=== PATIENT | female | born 1950 | race Caucasian/White ===

== ENCOUNTER 2023-10-19 08:30 | Emergency (ER) | payer MEDICARE, SELFPAY ==
--- NOTE | 2023-10-19 08:45 | ED.GENADULT ---
HPI - General Adult General Chief complaint: Ear Stated complaint: Rt Ear Irritation Time Seen by Provider: 10/19/23 08:45 73-year-old female patient presents to the [facility] with complaints of right ear pain that started about 330 this morning. Patient states it did wake her up from her sleep. Patient states she has had a little bit of a clear runny nose denies fevers, body aches or chills. Denies any coughing, chest pain or shortness of breath. Patient states she does take a Claritin daily but is getting rate to switch to Zyrtec. Source: patient Mode of arrival: ambulatory Limitations: no limitations Related Data Home Medications Medication Instructions Recorded Confirmed albuterol sulfate 90 mcg/actuation inhalation 10/19/23 aerosol inhaler aspirin 81 mg chewable tablet 81 mg PO DAILY 10/19/23 10/19/23 fluoxetine 40 mg capsule mg 10/19/23 folic acid 400 mcg tablet 0.4 mg PO DAILY 10/19/23 10/19/23 gabapentin 400 mg capsule mg 10/19/23 gabapentin 600 mg tablet mg 10/19/23 golimumab 12.5 mg/mL intravenous 200 mg IV ONCE 10/19/23 10/19/23 solution (Simponi ARIA) levothyroxine 150 mcg tablet mcg 10/19/23 lisinopril 20 mg tablet mg 10/19/23 loratadine 10 mg tablet (Claritin) 10 mg PO DAILY 10/19/23 10/19/23 methotrexate sodium 2.5 mg tablet mg 10/19/23 omeprazole 20 mg capsule,delayed mg 10/19/23 release propranolol 20 mg tablet mg 10/19/23 Allergies Allergy/AdvReac Type Severity Reaction Status Date / Time morphine Allergy Headache Verified 10/19/23 08:52 nabumetone [From Relafen] Allergy Rash Verified 10/19/23 08:52 Review of Systems Review of Systems: CONSTITUTIONAL: Denies fever, chills, or sweats. EYES: Denies visual changes, redness, or discharge. ENT: Denies rhinorrhea, congestion, sore throat, Positive right otalgia. CARDIOVASCULAR: Denies chest pain, palpitations, or edema. RESPIRATORY: Denies cough or dyspnea. GASTROINTESTINAL: Denies abdominal pain, nausea, vomiting, or diarrhea. GENITOURINARY: Denies dysuria or hematuria. SKIN: Denies rash or itching. MUSCULOSKELETAL: Denies back pain, joint pain, or myalgia. NEUROLOGIC: Denies headache, numbness, or weakness. PSYCHIATRIC: Denies anxiety or depression. PMFSH Comments At the time of my signature I agree with nursing past medical history, surgical, social, and family history. There is no relevant family history pertinent to the presenting complaint. Exam Narrative: GENERAL: Well-appearing, well-nourished, and in no acute distress. HEAD: Normocephalic, atraumatic. EYES: PERRLA and EOMI. ENT: Nares clear, no rhinorrhea or epistaxis. Mucous membranes moist. posterior pharynx with no erythema, tonsillar enlargement, exudates or lesions present. Bilateral TMs are clear but the right TM does appear to have some injection with surrounding erythema. NECK: Supple. No lymphadenopathy CHEST: Clear to auscultation. No respiratory distress. HEART: Regular rate and rhythm. No murmur heard. Normal peripheral pulses. ABDOMEN: Soft, nontender, nondistended, normal active bowel sounds. EXTREMITIES: Normal range of motion. No edema. SKIN: Warm, dry, no rash. NEURO: No focal deficits. Alert and oriented x3. Course Course Level of Care: Express Care Visit Vital Signs Vital signs: Vital Signs Temperature 36.4 C 10/19/23 08:50 Pulse Rate 68 10/19/23 08:50 Respiratory Rate 18 10/19/23 08:50 Blood Pressure 126/75 10/19/23 08:50 Pulse Oximetry 98 10/19/23 08:50 Oxygen Delivery Room Air 10/19/23 08:50 Temperature 36.4 C 10/19/23 08:55 Pulse Rate 68 10/19/23 08:55 Respiratory Rate 18 10/19/23 08:55 Blood Pressure 126/75 10/19/23 08:55 Pulse Oximetry 98 10/19/23 08:55 Oxygen Delivery Room Air 10/19/23 08:55 Vital signs reviewed. Medical Decision Making MDM Narrative Medical decision making narrative: Plan care patient is discharged home with antibiotic for ear infection. Encour
[2023-10-19 08:50] VITALS: BP 126/75; PULSE 68; RESP 18; TEMP 36.4; O2SAT 98
[2023-10-19 08:55] VITALS: BP 126/75; PULSE 68; RESP 18; TEMP 36.4; O2SAT 98
== END 2023-10-19 09:20 | disposition home or self-care (01) ==
PROVIDERS: Emergency Provider Nurse Practitioner Family
DX: H65.111 Acute and subacute allergic otitis media (mucoid) (sanguinous) (serous), right ear (principal); Z79.82 Long term (current) use of aspirin; I10 Essential (primary) hypertension; K21.9 Gastro-esophageal reflux disease without esophagitis; M06.9 Rheumatoid arthritis, unspecified; M85.80 Other specified disorders of bone density and structure, unspecified site; E03.9 Hypothyroidism, unspecified; F41.9 Anxiety disorder, unspecified; F32.A Depression, unspecified; Z87.891 Personal history of nicotine dependence
CPT/HCPCS: 99203; G0463

== ENCOUNTER 2025-02-01 10:58 | Emergency (ER) | payer MEDICARE, SELFPAY ==
--- NOTE | ~2025-02-01 | CT_ITS ---
EXAMINATION: CT brain wo con DATE: 02/01/2025 11:40 INDICATION: Fall with head injury TECHNIQUE: Computed tomography (CT) of the head was performed without intravenous contrast. Sagittal and coronal reconstructions were performed. The mA was adjusted according to patient size. Iterative reconstruction technique was employed. The dose-length product was 605.33 mGy-cm. COMPARISON: None FINDINGS: Left parietal scalp hematoma. No fracture. No acute intracranial hemorrhage, acute infarction or abno rmal extra axial fluid collection.. There is mild scattered white matter hypoattenuation consistent w ith chronic small vessel ischemic disease. Symmetric prominence of the sulci consistent with mild age -appropriate diffuse cerebral volume loss. Ventricles are normal and symmetric. No mass/mass effect. Changes of bilateral intraocular lens replacement. Mucosal thickening in the bilateral ethmoid and ma xillary sinuses. Mastoid air cells and middle ear cavities are clear.. IMPRESSION: 1. Left parietal scalp hematoma. No fracture or acute intracranial process. 2. Age-related changes including mild diffuse volume loss and mild scattered white matter hypoattenua tion consistent with chronic small vessel ischemic disease. Reviewed, dictated and finalized at location B. IMPRESSION: 1. Left parietal scalp hematoma. No fracture or acute intracranial process. 2. Age-related changes including mild diffuse volume loss and mild scattered wh ite matter hypoattenuation consistent with chronic small vessel ischemic diseas e.
--- NOTE | ~2025-02-01 | CT_ITS ---
EXAMINATION: CT cervical spine wo con DATE: 02/01/2025 11:40 INDICATION: Fall with head injury TECHNIQUE: Computed tomography (CT) of the cervical spine was performed without intravenous contrast. Automated exposure control and iterative reconstruction technique were employed. The dose-length pro duct was 525.23 mGy-cm. COMPARISON: None FINDINGS: Straightening of the normal cervical lordosis. Vertebral body heights are normal. No fracture. Modera te disc height loss at C5-C6 and T2-T3 with mild disc height loss at C2-C3, C4-C5 and C6-C7 through T 1-T2. Small posterior endplate osteophytes contribute to mild central canal stenosis at C5-C6. There is severe facet osteoarthritis on the left at C5-C6 there is mild osteoarthritis at many of the remai suzy cervical facet joints. Moderate facet osteoarthritis on the left at C7-T1 with mild facet osteoa rthritis throughout the remainder of the cervical spine. There is mild neural foraminal stenosis on t he left at C5-C6. Cervical soft tissues are unremarkable. Left internal jugular central venous cathet er extends into the superior vena cava and beyond the inferior margin of the field of imaging. IMPRESSION: 1. Moderate cervical spondylosis. No acute osseous abnormality. Reviewed, dictated and finalized at location B.
--- OUTSIDE RECORDS SUMMARY | 2025-02-01 11:10 | XMS_ITS | Data Portability ---
Author Organization [facility], [address] ([place]) Address [address] 4th [place] [address] Care Team Providers Care Assembly Lead Person Name Role Phone CORTEZ FOSTER Primary Care Provider CORTEZ FOSTER Referring Provider Assessment Encounter Date Assessment Date Assessment LastModified by Organization Details LastModified Time 06/17/2024 06/17/2024 HPI: Aileen is here for follow-up of lung cancer screening and MADAN. She called a few days ago with complaints of chest congestion and worsening cough. Bordetella IgG antibodies were elevated and she was negative for COVID and influenza. She completed Z-Jordan as prescribed and reported some improvement in his symptoms. Exercise tolerance is stable. She is trying to use CPAP most of the time. PMH and PSH: COPD, obesity, MADAN, depression, HTN, hypothyroidism, RA, paroxysmal SVT, appendectomy, , cholecystectomy , EGD, GERD, hysterectomy, hemilaminectomy , tonsillectomy, vaginal sling surgery and revision of the sling. Family history: Esophageal cancer, CVA, HTN and lung cancer. Social history: 40 to 50 pack years, quit in 2019. PHYSICAL EXAM: Awake, alert, oriented, not in acute distress. Normal mood and affect. Pleasant. OP Mallampati 3. Normal work of breathing. Symmetrical chest expansion. CTAB. RRR, no MRG. Undisplaced PMI. No JVD. No LE edema. DIAGNOSTIC DATA: Spirometry previously did not show obstruction. 6-minute walk test today is unremarkable. PSG 02/14/2023, weight 235 pounds: AHI 10/h and supine AHI 38/h. CPAP download today shows reasonable adherence to therapy. Low-dose CT on 06/14/2024 was unremarkable. No worrisome pulmonary nodules or lesions. ASSESSMENT & PLAN: Aileen has 40+ pack years quit in 2019, BMI >40, GERD. She has recurrent cough. Her most recent cough could be from Bordetella infection. She completed azithromycin with partial improvement. Other potential causes include reflux and lisinopril. Instructed on reflux prevention measures. Advised to call if her cough does not resolve. Continue regular use of CPAP 12-16 CWP. Recommended regular exercise and weight loss. RTC in 1 year with CPAP download, ESS & low-dose CT for lung cancer screening. yoanna Not available 06/17/2024 16:18:55 07/26/2024 07/26/2024 74-year-old female here for evaluation of near syncope. She hypertension. About 2 weeks ago she had parotitis and she had an episode of near syncope while in the bed lasted few seconds. Did not quite pass out completely. Another episode a week later and was in the ER blood work was normal. Blood pressure has been normal. Denies chest pain dizziness orthopnea. Has rare palpitations. No previous cardiac x-ray. He also been diagnosed with chest wall mass possible malignancy waiting on biopsy for this. EKG shows sinus rhythm. Assessment and plan 74-year-old female evaluation of near syncope. I doubt cardiac etiology. Suspect vasovagal. We will do a 1 month event monitor to rule out any cardiac arrhythmias. Pending this reassured from cardiac respective. timothy Not available 07/26/2024 15:30:20 09/10/2024 09/10/2024 IMPRESSION: 1. Non-Hodgkin s lymphoma, stage 4 being managed through [facility]. 2. Seropositive rheumatoid arthritis, stable. 3. Methotrexate therapy. PLAN: 1. The patient s labs are reviewed. They are stable, normal. She continues to have namely a chronic disease. 2. Continue methotrexate 10 mg once weekly. Advised her I would not raise the dose at this time. She is comfortable with that. Her arthritis is doing well. 3. Return for follow-up in 4 months to re-evaluate her status. She is encouraged to call any time prior to that as needed. [email or web address] Not available 09/10/2024 12:45:42 Plan of Treatment Reminders Order Date Submit Date Provider Last Modified By Organization Details Last Modified Time Details Appointments Establ april Lindsay t 15.EST 2024 09:00A M Hermelindo Robledo Not available Not available Not available Catara ct Evalua tion 10.NEW 2024 10:30A M Dr. Anshlu Santoro Not available Not available Not available New Patien t Visit 10.NEW 2024 02:30P M Dr. Mark Slaughter Not available Not available Not available [place] w Exerci se Oximet ry.PRO 2024 02:30P M [facility] Not available Not available Not available Estabcory Lindsay t 10.EST 2024 03:00P M Dr. Morro Sweet Not available Not available Not available Estabcory Lindsay t 20.EST 2024 10:40A M Dr. Hermelindo Calvin Not available Not available Not available Lab CBC 2024 025 [facility] Only - [facility], [address] [place] [address], [id number], 01/26/2025 19:26:20 ALT (daphne oleary), serum or plasma 2024 025 [facility] Only - [facility], [address] [place] [address], [id number], 01/26/2025 13:00:56 creati nine, serum or plasma 2024 025 [facility] Only - [facility], [address] [place] [address], [id number], 01/26/2025 13:00:56 Referral None record ed. Procedures None record ed. Surgeries None record ed. Imaging None record ed. Medication Orders None record ed. Patient TargetsNo targets recorded. Patient InstructionsNo instructions recorded. Reason for Referral None Reported. Results Created Date Observation Date Name Description Value Unit Range Abnormal Flag Note LastModifiedBy Organization Detail LastModifiedTime 06/10/20 24 06/10/2024 influ may (A+B) RNA, quali tativ e, PCR influenza A and B Not Available [facility] [address], [id number], 06/10/2024 12:48:27 06/10/20 24 06/10/2024 influ may (A+B) RNA, quali tativ e, PCR influenza A NEGATI VE negati ve Not Available Md Only - [facility] [address] [place] [address], [id number], 06/10/2024 12:48:27 06/10/20 24 06/10/2024 influ may (A+B) RNA, quali tativ e, PCR influenza B NEGATI VE negati ve Influ may A/B assay perfo rmed on the ID NOW Instr ument via rapid molec ular in vitro diagn ostic appro ach utili zing an isoth ermal nucle ic acid ampli ficat ion techn ique for the quali tativ e detec tion and discr imina tion of influ may A and B. It is inten ded for use as an aid in the diffe renti al diagn osis of influ may A and B viral infec tions in human s in conju nctio n with clini yue and epide miolo gical risk facto rs. The assay is not inten ded to detec t the prese nce of influ may C virus . Rapid influ may diagn ostic testi ng (RIDT ) is not inten ded to be used as the sole deter minin g facto r for Influ may diagn osis. Negat holger resul ts do not precl ude infec tion with influ may virus and shoul d not be the sole basis of a patie nt treat ment decis ion. False negat holger resul ts may occur if a speci men is impro perly colle cted, trans porte d/chaves dled or inade quate level s of virus es are prese nt in the speci men. At a low frequ ency, clini yue sampl es can conta in inhib itors that may gener ate inval id resul ts. Site to site inval id rates may vary and repea t testi ng shoul d [facility]i [facility] . Not Available Md Only - [facility] [address] [place] [address], [id number], 06/10/2024 12:48:27 06/10/20 24 06/12/2024 SARS CoV 2 RNA (COVI D-19) , QL, silo man-P CR, respi rator y speci men sars-cov-2 RNA, RT PCR ql Not Available [facility] [address] [place] [address], [id number], 06/12/2024 15:38:49 06/10/20 24 06/12/2024 SARS CoV 2 RNA (COVI D-19) , QL, silo man-P CR, respi rator y speci men cov 2 RNA, PCR not detect Not Detec georgina This nucle ic acid ampli ficat ion test was devel oped and its perfo rmanc e lisa cteri stics deter mined by [facility] atori es. Nucle ic acid ampli ficat ion tests inclu de RT-PC R and TMA. This test has not been FDA clear ed or appro rodri. This test has been autho rized by FDA under an Emerg ency Use Autho rizat ion (EUA) . This test is only autho rized for the durat ion of time the decla ratio n that circu mstan rani exist justi fying the autho rizat ion of the emerg ency use of in vitro diagn ostic tests for detec tion of SARS- CoV-2 virus and/o r diagn osis of COVID -19 infec tion under secti on 564(b )(1) of the Act, 21 U.S.C . 360bb b-3(b ) (1), unles s the autho rizat ion is termi nated or revok ed soone r. When diagn ostic testi ng is negat holger, the possi bilit y of a false negat holger resul t shoul d be consi dered in the aamir xt of a patie nt's recen t expos ures and the prese nce of clini yue signs and sympt oms consi stent with COVID -19. An indiv idual witho ut sympt oms of COVID -19 and who is not charlotte ing SARS- CoV-2 virus would expec t to have a negat holger (not detec georgina) resul t in this assay . Not Available Md Only - [facility] [address] [place] [address], [id number], 06/12/2024 15:38:49 06/10/20 24 06/15/2024 borde tella pertu ssis igg+i ga Ab, serum bord pertussis IgG Not Available [facility] [address] [place] [address], [id number], 06/15/2024 03:38:27 06/10/20 24 06/15/2024 borde tella pertu ssis igg+i ga Ab, serum B pertussis IgG - PT 3.96 index 0.00-0 .94 high Negat holger <0.95 Equiv ocal 0.95 - 1.04 Posit holger >1.04 Not Available Md Only - [facility] [address] [place] [address], [id number], 06/15/2024 03:38:27 06/10/20 24 06/15/2024 borde tella pertu ssis igg+i ga Ab, serum B pertussis IgA - PT <1.0 index 0.0-0. 9 Negat holger <1.0 Borde rline 1.0 - 1.1 Posit holger >1.1 Not Available Md Only - [facility] [address] [place] [address], [id number], 06/15/2024 03:38:27 06/17/20 24 06/17/2024 CBC CBC Not Available Md Only - [facility] [address] [place] [address], [id number], 06/17/2024 19:01:08 06/17/20 24 06/17/2024 CBC WBC 7.6 K/uL 3.8-11 .2 Not Available Md Only - [facility] [address] [place] [address], [id number], 06/17/2024 19:01:08 06/17/20 24 06/17/2024 CBC RBC 3.28 M/uL 3.92-5 .10 low Not Available [facility] Only - [facility] [address] [place] [address], [id number], 06/17/2024 19:01:08 06/17/20 24 06/17/2024 CBC HGB 9.9 g/dL 11.8-1 5.3 low Not Available [facility] Only - [facility] [address] [place] [address], [id number], 06/17/2024 19:01:08 06/17/20 24 06/17/2024 CBC HCT 31.0 % 36.5-4 4.8 low Not Available [facility] Only - [facility] [address] [place] [address], [id number], 06/17/2024 19:01:08 06/17/20 24 06/17/2024 CBC MCV 94.5 fL 80.0-9 9.0 Not Available [facility] Only - [facility] [address] [place] [address], [id number], 06/17/2024 19:01:08 06/17/20 24 06/17/2024 CBC MCH 30.2 pg 25.5-3 3.6 Not Available [facility] Only - [facility] [address] [place] [address], [id number], 06/17/2024 19:01:08 06/17/20 24 06/17/2024 CBC MCHC 31.9 g/dL 32.0-3 6.0 low Not Available [facility] Only - [facility] [address] [place] [address], [id number], 06/17/2024 19:01:08 06/17/20 24 06/17/2024 CBC RDW-SD 56.8 fL 35.1 - 46.3 high Not Available [facility] Only - [facility] [address] [place] [address], [id number], 06/17/2024 19:01:08 06/17/2006/17/2024 CBC plt 310 K/uL 130-40 0 Not Available Md Only - [facility] [address] [place] [address], [id number], 06/17/2024 19:01:08 06/17/20 24 06/17/2024 CBC MPV 9.8 fL 9.3-12 .8 Not Available Md Only - [facility] [address] [place] [address], [id number], 06/17/2024 19:01:08 06/17/2006/18/2024 creat inine , serum or plasm a creatinine- Not Available [facility] [address] [place] [address], [id number], 06/18/2024 11:47:41 06/17/2006/18/2024 creat inine , serum or plasm a creatinine 0.7 mg/dL 0.7-1. 3 Not Available Md Only - [facility] [address] [place] [address], [id number], 06/18/2024 11:47:41 06/17/20 24 06/18/2024 creat inine , serum or plasm a GFR(non-afri can portuguese) 87 Not Available [facility] - [facility] [address] [place] [address], [id number], 06/18/2024 11:47:41 06/17/2006/18/2024 creat inine , serum or plasm a GFR() 106 (EVENT DESIGNER JOSI KIDNE Y DISEA SE HAS A GFR LESS THAN 60 ML/CA N/1.7 3 MM FOR A PERIO D OF THREE MONTH S OR MORE. ) Not Available Md Only - [facility] [address] [place] [address], [id number], 06/18/2024 11:47:41 06/17/20 24 06/18/2024 ALT (finesse ine amino trans feras e), serum or plasm a ALT (SGPT) Not Available Md Only - [facility] [address] [place] [address], [id number], 06/18/2024 11:47:43 06/17/20 24 06/18/2024 ALT (finesse ine amino trans feras e), serum or plasm a ALT (SGPT) 12 U/L 8-35 Not Available Md Only - [facility] [address] [place] [address], [id number], 06/18/2024 11:47:43 09/13/19 25 09/13/2024 COMPR EHENS HOLGER METAB OLIC PANEL sodium 137 mEq/L 133 - 142 Not Available [facility] [address], [place], [address], 09/13/2024 10:44:03 09/13/19 25 09/13/2024 COMPR EHENS HOLGER METAB OLIC PANEL potassium 3.9 mEq/L 3.5 - 5.1 Not Available [facility] [address], [place], [address], 09/13/2024 10:44:03 09/13/19 25 09/13/2024 COMPR EHENS HOLGER METAB OLIC PANEL chloride 104 mEq/L 98 - 107 Not Available [facility] [address] [place], [address], 09/13/2024 10:44:03 09/13/19 25 09/13/2024 COMPR EHENS HOLGER METAB OLIC PANEL CO2 26.0 mmol/ L 22.0 - 29.0 Not Available [facility] [address] [place], [address], 09/13/2024 10:44:03 09/13/19 25 09/13/2024 COMPR EHENS HOLGER METAB OLIC PANEL BUN 9 mg/dL 7 - 20 Not Available [facility] [address] [place], [address], 09/13/2024 10:44:03 09/13/19 25 09/13/2024 COMPR EHENS HOLGER METAB OLIC PANEL creatinine 0.74 mg/dL 0.57 - 1.11 Not Available [facility] [address], [place], [address], 09/13/2024 10:44:03 09/13/19 25 09/13/2024 COMPR EHENS HOLGER METAB OLIC PANEL glucose 84 mg/dL 70 - 105 Not Available [facility] [address] [place], [address], 09/13/2024 10:44:03 09/13/19 25 09/13/2024 COMPR EHENS HOLGER METAB OLIC PANEL calcium 8.8 mg/dL 8.4 - 10.2 Not Available [facility] [address] [place], [address], 09/13/2024 10:44:03 09/13/19 25 09/13/2024 COMPR EHENS HOLGER METAB OLIC PANEL alk phos 56 IU/L 40 - 150 Not Available [facility] [address], [place], [address], 09/13/2024 10:44:03 09/13/19 25 09/13/2024 COMPR EHENS HOLGER METAB OLIC PANEL AST 12 IU/L 5 - 34 Not Available [facility] [address] [place], [address], 09/13/2024 10:44:03 09/13/19 25 09/13/2024 COMPR EHENS HOLGER METAB OLIC PANEL ALT 18 IU/L 1 - 55 Not Available [facility] [address] [place], [address], 09/13/2024 10:44:03 09/13/19 25 09/13/2024 COMPR EHENS HOLGER METAB OLIC PANEL T bilirubin 0.6 mg/dL 0.4 - 1.4 Not Available Md Only - [facility] [address], [place], [address], 09/13/2024 10:44:03 09/13/19 25 09/13/2024 COMPR EHENS HOLGER METAB OLIC PANEL total protein 6.6 g/dL 6.4 - 8.3 Not Available Md Only - [facility] [address] [place], [address], 09/13/2024 10:44:03 09/13/19 25 09/13/2024 COMPR EHENS HOLGER METAB OLIC PANEL albumin 3.7 g/dL 3.5 - 5.0 Not Available Md Only - [facility] [address] [place], [address], 09/13/2024 10:44:03 09/13/19 25 09/13/2024 COMPR EHENS HOLGER METAB OLIC PANEL anion gap 7 8 - 16 low Not Available Md Only - [facility] [address] [place], [address], 09/13/2024 10:44:03 09/13/19 25 09/13/2024 COMPR EHENS HOLGER METAB OLIC PANEL age 74 years Not Available Md Only - [facility] [address] [place], [address], 09/13/2024 10:44:03 09/13/19 25 09/13/2024 COMPR EHENS HOLGER METAB OLIC PANEL eGFR 86 \BLDo \eGFR INTER PRETI VE TEXT\ BLDx\ This eGFR is calcu lated using 2020 CKD-E PI Creat inine equat ion witho ut race modif ier based on the NKF-A SN task force recom menda tions . In most healt hy peopl e the kasey l GFR is 90 mL/mi n/1.7 3 m2 or highe r. A resul t of 60-89 mL/mi n/1.7 3 m2 with kidne y damag e may be kasey l in some peopl e(suc h as the elder ly, infan ts). A resul t of 60-89 mL/mi n/1.7 3 m2 for three month s or more, along with kidne y damag e(suc h as persi stent prote in in the urine ), means the perso n has early kidne y disea se. When GFR is <60 for three month s or more, chron ic kidne y disea se(CK D) is prese nt. Not Available [facility] - [facility] [address], [place], [address], 09/13/2024 10:44:03 09/13/1909/13/2024 CBC WITHO UT DIFFE RENTI AL hemoglobin 10.8 g/dL 12.0 - 16.0 low Not Available [facility] Only - [facility] [address], [place], [address], 09/13/2024 10:26:20 09/13/19 25 09/13/2024 CBC WITHO UT DIFFE RENTI AL hematocrit 32.5 % 36.0 - 46.0 low Not Available [facility] Only - [facility] [address], [place], [address], 09/13/2024 10:26:20 09/13/19 25 09/13/2024 CBC WITHO UT DIFFE RENTI AL RBC 3.60 M/cum m 4.00 - 5.20 low Not Available [facility] Only - [facility] [address], [place], [address], 09/13/2024 10:26:20 09/13/19 25 09/13/2024 CBC WITHO UT DIFFE RENTI AL MCV 90 fL 78 - 102 Not Available [facility] Only - [facility] [address], [place], [address], 09/13/2024 10:26:20 09/13/19 25 09/13/2024 CBC WITHO UT DIFFE RENTI AL MCHC 33.1 g/dL 31.0 - 36.5 Not Available [facility] Only - [facility] [address], [place], [address], 09/13/2024 10:26:20 09/13/19 25 09/13/2024 CBC WITHO UT DIFFE RENTI AL RDW 19.4 % 11.7 - 15.5 high Not Available [facility] Only - [facility] [address] [place], [address], 09/13/2024 10:26:20 09/13/19 25 09/13/2024 CBC WITHO UT DIFFE RENTI AL WBC 8.9 K/cum m 4.5 - 11.0 Not Available [facility] Only - [facility] [address] [place], [address], 09/13/2024 10:26:20 09/13/19 25 09/13/2024 CBC WITHO UT DIFFE RENTI AL platelet CT 293 K/cum m 150 - 450 Not Available [facility] - [facility] [address] [place], [address], 09/13/2024 10:26:20 09/20/19 25 09/21/2024 CBC WITHO UT DIFFE RENTI AL hemoglobin 11.6 g/dL 12.0 - 16.0 low Not Available [facility] Only - [facility] [address] [place], [address], 09/21/2024 14:51:44 09/20/19 25 09/21/2024 CBC WITHO UT DIFFE RENTI AL hematocrit 35.1 % 36.0 - 46.0 low Not Available [facility] Only - [facility] [address] [place], [address], 09/21/2024 14:51:44 09/20/19 25 09/21/2024 CBC WITHO UT DIFFE RENTI AL RBC 3.91 M/cum m 4.00 - 5.20 low Not Available [facility] Only - [facility] [address] [place], [address], 09/21/2024 14:51:44 09/20/19 25 09/21/2024 CBC WITHO UT DIFFE RENTI AL MCV 90 fL 78 - 102 Not Available [facility] Only - [facility] [address], [place], [address], 09/21/2024 14:51:44 09/20/19 25 09/21/2024 CBC WITHO UT DIFFE RENTI AL MCHC 33.1 g/dL 31.0 - 36.5 Not Available [facility] Only - [facility] [address] [place], [address], 09/21/2024 14:51:44 09/20/19 25 09/21/2024 CBC WITHO UT DIFFE RENTI AL RDW 19.3 % 11.7 - 15.5 high Not Available [facility] Only - [facility] [address] [place], [address], 09/21/2024 14:51:44 09/20/19 25 09/21/2024 CBC WITHO UT DIFFE RENTI AL WBC 11.1 K/cum m 4.5 - 11.0 high Not Available [facility] Only - [facility] [address] [place], [address], 09/21/2024 14:51:44 09/20/19 25 09/21/2024 CBC WITHO UT DIFFE RENTI AL platelet CT 210 K/cum m 150 - 450 Not Available [facility] Only - [facility] [address] [place], [address], 09/21/2024 14:51:44 09/20/19 25 09/20/2024 COMPR EHENS HOLGER METAB OLIC PANEL sodium 137 mEq/L 133 - 142 Not Available [facility] Only - [facility] [address] [place], [address], 09/20/2024 11:19:15 09/20/19 09/20/2024 COMPR EHENS HOLGER METAB OLIC PANEL potassium 4.3 mEq/L 3.5 - 5.1 Not Available Md Only - [facility] [address], [place], [address], 09/20/2024 11:19:15 09/20/19 25 09/20/2024 COMPR EHENS HOLGER METAB OLIC PANEL chloride 106 mEq/L 98 - 107 Not Available [facility] [address], [place], [address], 09/20/2024 11:19:15 09/20/19 25 09/20/2024 COMPR EHENS HOLGER METAB OLIC PANEL CO2 25.0 mmol/ L 22.0 - 29.0 Not Available [facility] [address], [place], [address], 09/20/2024 11:19:15 09/20/19 25 09/20/2024 COMPR EHENS HOLGER METAB OLIC PANEL BUN 13 mg/dL 7 - 20 Not Available [facility] [address], [place], [address], 09/20/2024 11:19:15 09/20/19 25 09/20/2024 COMPR EHENS HOLGER METAB OLIC PANEL creatinine 0.82 mg/dL 0.57 - 1.11 Not Available [facility] [address], [place], [address], 09/20/2024 11:19:15 09/20/19 25 09/20/2024 COMPR EHENS HOLGER METAB OLIC PANEL glucose 99 mg/dL 70 - 105 Not Available [facility] [address] [place], [address], 09/20/2024 11:19:15 09/20/19 25 09/20/2024 COMPR EHENS HOLGER METAB OLIC PANEL calcium 8.9 mg/dL 8.4 - 10.2 Not Available [facility] [address], [place], [address], 09/20/2024 11:19:15 09/20/19 25 09/20/2024 COMPR EHENS HOLGER METAB OLIC PANEL alk phos 73 IU/L 40 - 150 Not Available Md Only - [facility] [address] [place], [address], 09/20/2024 11:19:15 09/20/19 25 09/20/2024 COMPR EHENS HOLGER METAB OLIC PANEL AST 11 IU/L 5 - 34 Not Available Md Only - [facility] [address] [place], [address], 09/20/2024 11:19:15 09/20/19 25 09/20/2024 COMPR EHENS HOLGER METAB OLIC PANEL ALT 14 IU/L 1 - 55 Not Available Md Only - [facility] [address] [place], [address], 09/20/2024 11:19:15 09/20/19 25 09/20/2024 COMPR EHENS HOLGER METAB OLIC PANEL T bilirubin 0.8 mg/dL 0.4 - 1.4 Not Available Md Only - [facility] [address] [place], [address], 09/20/2024 11:19:15 09/20/19 25 09/20/2024 COMPR EHENS HOLGER METAB OLIC PANEL total protein 6.8 g/dL 6.4 - 8.3 Not Available Md Only - [facility] [address] [place], [address], 09/20/2024 11:19:15 09/20/19 25 09/20/2024 COMPR EHENS HOLGER METAB OLIC PANEL albumin 3.9 g/dL 3.5 - 5.0 Not Available Md Only - [facility] [address] [place], [address], 09/20/2024 11:19:15 09/20/19 25 09/20/2024 COMPR EHENS HOLGER METAB OLIC PANEL anion gap 6 8 - 16 low Not Available Md Only - [facility] [address], [place], [address], 09/20/2024 11:19:15 09/20/19 25 09/20/2024 COMPR EHENS HOLGER METAB OLIC PANEL age 74 years Not Available Md Only - [facility] [address], [place], [address], 09/20/2024 11:19:15 09/20/19 25 09/20/2024 COMPR EHENS HOLGER METAB OLIC PANEL eGFR 76 \BLDo \eGFR INTER PRETI VE TEXT\ BLDx\ This eGFR is calcu lated using 2020 CKD-E PI Creat inine equat ion witho ut race modif ier based on the NKF-A SN task force recom menda tions . In most healt hy peopl e the kasey l GFR is 90 mL/mi n/1.7 3 m2 or highe r. A resul t of 60-89 mL/mi n/1.7 3 m2 with kidne y damag e may be kasey l in some peopl e(suc h as the elder ly, infan ts). A resul t of 60-89 mL/mi n/1.7 3 m2 for three month s or more, along with kidne y damag e(suc h as persi stent prote in in the urine ), means the perso n has early kidne y disea se. When GFR is <60 for three month s or more, chron ic kidne y disea se(CK D) is prese nt. Not Available Md Only - [facility] [address], [place], [address], 09/20/2024 11:19:15 09/20/19 25 09/20/2024 CBC WITH DIFFE RENTI AL AND REFLE X hemoglobin 11.6 g/dL 12.0 - 16.0 low Not Available [facility] Only - [facility] [address] [place], [address], 09/20/2024 10:58:01 09/20/19 25 09/20/2024 CBC WITH DIFFE RENTI AL AND REFLE X hematocrit 35.1 % 36.0 - 46.0 low Not Available Md Only - [facility] [address] [place], [id number], 09/20/2024 10:58:01 09/20/19 25 09/20/2024 CBC WITH DIFFE RENTI AL AND REFLE X RBC 3.91 M/cum m 4.00 - 5.20 low Not Available Md Only - [facility] [address] [place], [id number], 09/20/2024 10:58:01 09/20/19 25 09/20/2024 CBC WITH DIFFE RENTI AL AND REFLE X MCV 90 fL 78 - 102 Not Available Md Only - [facility] [address] [place], [id number], 09/20/2024 10:58:01 09/20/19 25 09/20/2024 CBC WITH DIFFE RENTI AL AND REFLE X MCHC 33.1 g/dL 31.0 - 36.5 Not Available Md Only - [facility] [address] [address] [address] [address], [address], 09/20/2024 10:58:01 09/20/19 25 09/20/2024 CBC WITH DIFFE RENTI AL AND REFLE X RDW 19.3 % 11.7 - 15.5 high Not Available Sc Only - [facility] [address] [place], [address], 09/20/2024 10:58:01 09/20/19 25 09/20/2024 CBC WITH DIFFE RENTI AL AND REFLE X WBC 11.1 K/cum m 4.5 - 11.0 high Not Available Md Only - [facility] [address] [place], [address], 09/20/2024 10:58:01 09/20/19 25 09/20/2024 CBC WITH DIFFE RENTI AL AND REFLE X auto neutroph 88 % Not Available Md Onl y - [facility] [address], [place], [address], 09/20/2024 10:58:01 09/20/19 25 09/20/2024 CBC WITH DIFFE RENTI AL AND REFLE X lymphocytes 4.7 % Not Available Md Onl y - [facility] [address] [place], [address], 09/20/2024 10:58:01 09/20/19 25 09/20/2024 CBC WITH DIFFE RENTI AL AND REFLE X monocytes 6.1 % Not Available Md Only - [facility] [address] [place], [address], 09/20/2024 10:58:01 09/20/19 25 09/20/2024 CBC WITH DIFFE RENTI AL AND REFLE X eosinophils 0.8 % Not Available Md Onl y - [facility] [address], [place], [address], 09/20/2024 10:58:01 09/20/19 25 09/20/2024 CBC WITH DIFFE RENTI AL AND REFLE X basophils 0.7 % Not Available Md Only - [facility] [address] [place], [address], 09/20/2024 10:58:01 09/20/19 25 09/20/2024 CBC WITH DIFFE RENTI AL AND REFLE X absol neut 9.76 K/uL 1.80 - 7.70 high Not Available Md Only - [facility] [address] [place], [address], 09/20/2024 10:58:01 09/20/19 25 09/20/2024 CBC WITH DIFFE RENTI AL AND REFLE X absol eos 0.09 K/uL Not Available Md Only - [facility] [address], [place], [address], 09/20/2024 10:58:01 09/20/19 25 09/20/2024 CBC WITH DIFFE RENTI AL AND REFLE X absol basos 0.08 K/uL Not Available Sc Onl y - [facility] [address] [place], [address], 09/20/2024 10:58:01 09/20/19 25 09/20/2024 CBC WITH DIFFE RENTI AL AND REFLE X absol monos 0.68 K/uL 0.10 - 1.10 Not Available Sc Only - [facility] [address] [place], [address], 09/20/2024 10:58:01 09/20/19 25 09/20/2024 CBC WITH DIFFE RENTI AL AND REFLE X absol lymphs 0.52 K/uL 1.00 - 4.80 low Not Available Sc Only - [facility] [address] [place], [address], 09/20/2024 10:58:01 09/20/19 25 09/20/2024 CBC WITH DIFFE RENTI AL AND REFLE X differential AUTO Not Available Sc On ly - [facility] [address] [place], [address], 09/20/2024 10:58:01 09/20/19 25 09/20/2024 CBC WITH DIFFE RENTI AL AND REFLE X RBC morph NOT INDICA GEORGINA Not Available Sc Only - [facility] [address] [place], [address], 09/20/2024 10:58:01 09/20/19 25 09/20/2024 CBC WITH DIFFE RENTI AL AND REFLE X platelet CT 210 K/cum m 150 - 450 Not Available Sc Only - [facility] [address] [place], [address], 09/20/2024 10:58:01 09/20/19 25 09/20/2024 CBC WITH DIFFE RENTI AL AND REFLE X platelet est NOT INDICA GEORGINA Not Available Sc Only - [facility] [address], [place], [address], 09/20/2024 10:58:01 10/26/19 25 10/25/2024 CBC WITHO UT DIFFE RENTI AL hemoglobin 11.9 g/dL 12.0 - 16.0 low Not Available Md Only - [facility] [address] [place], [address], 10/25/2024 17:59:38 10/26/19 25 10/25/2024 CBC WITHO UT DIFFE RENTI AL hematocrit 35.3 % 36.0 - 46.0 low Not Available Md Only - [facility] [address] [place], [address], 10/25/2024 17:59:38 10/26/19 25 10/25/2024 CBC WITHO UT DIFFE RENTI AL RBC 3.83 M/cum m 4.00 - 5.20 low Not Available Md Only - [facility] [address] [place], [address], 10/25/2024 17:59:38 10/26/19 25 10/25/2024 CBC WITHO UT DIFFE RENTI AL MCV 92 fL 78 - 102 Not Available Md Only - [facility] [address] [place], [address], 10/25/2024 17:59:38 10/26/19 25 10/25/2024 CBC WITHO UT DIFFE RENTI AL MCHC 33.6 g/dL 31.0 - 36.5 Not Available Md Only - [facility] [address] [place], [address], 10/25/2024 17:59:38 10/26/19 25 10/25/2024 CBC WITHO UT DIFFE RENTI AL RDW 18.3 % 11.7 - 15.5 high Not Available Md Only - [facility] [address], [place], [address], 10/25/2024 17:59:38 10/26/19 25 10/25/2024 CBC WITHO UT DIFFAscencion STONELIANE AL WBC 7.3 K/cum m 4.5 - 11.0 Not Available Md Only - [facility] [address], [place], [address], 10/25/2024 17:59:38 10/26/19 25 10/25/2024 CBC WITHO UT ERIC MONROY AL platelet CT 212 K/cum m 150 - 450 Not Available Md Only - [facility] [address], [place], [address], 10/25/2024 17:59:38 10/26/19 25 10/25/2024 COMPR EHENS HOLGER METAB OLIC PANEL sodium 139 mEq/L 133 - 142 Not Available Md Only - [facility] [address] [place], [address], 10/25/2024 18:00:17 10/26/19 25 10/25/2024 COMPR EHENS HOLGER METAB OLIC PANEL potassium 3.6 mEq/L 3.5 - 5.1 Not Available Md Only - [facility] [address] [place], [address], 10/25/2024 18:00:17 10/26/19 25 10/25/2024 COMPR EHENS HOLGER METAB OLIC PANEL chloride 107 mEq/L 98 - 107 Not Available Md Only - [facility] [address] [place], [address], 10/25/2024 18:00:17 10/26/19 25 10/25/2024 COMPR EHENS HOLGER METAB OLIC PANEL CO2 24.0 mmol/ L 22.0 - 29.0 Not Available Md Only - [facility] [address] [place], [address], 10/25/2024 18:00:17 10/26/19 25 10/25/2024 COMPR EHENS HOLGER METAB OLIC PANEL BUN 9 mg/dL 7 - 20 Not Available [facility] [address], [place], [address], 10/25/2024 18:00:17 10/26/19 25 10/25/2024 COMPR EHENS HOLGER METAB OLIC PANEL creatinine 0.73 mg/dL 0.57 - 1.11 Not Available [facility] [address], [place], [address], 10/25/2024 18:00:17 10/26/19 25 10/25/2024 COMPR EHENS HOLGER METAB OLIC PANEL glucose 111 mg/dL 70 - 105 high Not Available [facility] [address], [place], [address], 10/25/2024 18:00:17 10/26/19 25 10/25/2024 COMPR EHENS HOLGER METAB OLIC PANEL calcium 8.7 mg/dL 8.4 - 10.2 Not Available [facility] [address], [place], [address], 10/25/2024 18:00:17 10/26/19 25 10/25/2024 COMPR EHENS HOLGER METAB OLIC PANEL alk phos 79 IU/L 40 - 150 Not Available [facility] [address] [place], [address], 10/25/2024 18:00:17 10/26/1910/25/2024 COMPR EHENS HOLGER METAB OLIC PANEL AST 15 IU/L 5 - 34 Not Available [facility] [address] [place], [address], 10/25/2024 18:00:17 10/26/19 25 10/25/2024 COMPR EHENS HOLGER METAB OLIC PANEL ALT 12 IU/L 1 - 55 Not Available Md Only - [facility] [address], [place], [address], 10/25/2024 18:00:17 10/26/19 25 10/25/2024 COMPR EHENS HOLGER METAB OLIC PANEL T bilirubin 0.5 mg/dL 0.4 - 1.4 Not Available Md Only - [facility] [address], [place], [address], 10/25/2024 18:00:17 10/26/19 25 10/25/2024 COMPR EHENS HOLGER METAB OLIC PANEL total protein 6.3 g/dL 6.4 - 8.3 low Not Available [facility] [address], [place], [address], 10/25/2024 18:00:17 10/26/19 25 10/25/2024 COMPR EHENS HOLGER METAB OLIC PANEL albumin 3.8 g/dL 3.5 - 5.0 Not Available [facility] [address], [place], [address], 10/25/2024 18:00:17 10/26/19 25 10/25/2024 COMPR EHENS HOLGER METAB OLIC PANEL anion gap 8 8 - 16 Not Available Md Only - [facility] [address] [place], [address], 10/25/2024 18:00:17 10/26/19 25 10/25/2024 COMPR EHENS HOLGER METAB OLIC PANEL age 74 years Not Available Md Only - [facility] [address] [place], [address], 10/25/2024 18:00:17 10/26/19 25 10/25/2024 COMPR EHENS HOLGER METAB OLIC PANEL eGFR 87 \BLDo \eGFR INTER PRETI VE TEXT\ BLDx\ This eGFR is calcu lated using 2020 CKD-E PI Creat inine equat ion witho ut race modif ier based on the NKF-A SN task force recom menda tions . In most healt hy peopl e the kasey l GFR is 90 mL/mi n/1.7 3 m2 or highe r. A resul t of 60-89 mL/mi n/1.7 3 m2 with kidne y damag e may be kasey l in some peopl e(suc h as the elder ly, infan ts). A resul t of 60-89 mL/mi n/1.7 3 m2 for three month s or more, along with kidne y damag e(suc h as persi stent prote in in the urine ), means the perso n has early kidne y disea se. When GFR is <60 for three month s or more, chron ic kidne y disea se(CK D) is prese nt. Not Available Md Only - [facility] [address], [place], [address], 10/25/2024 18:00:17 01/01/2012/31/2024 TSH, ultra -sens itive , serum TSH3 5.237 uIU/m L .340-5 .600 Not Available Md Only - [facility] [address] [place] [address], [address], 12/31/2024 19:47:50 01/01/20 25 12/31/2024 T4, free, serum free T4 1.38 NG/dL 0.58-1 .64 Speci mens that conta in high level s of bioti n may cause false ly high Free T4 resul ts. Not Available Md Only - [facility] [address] [place] [address], [address], 12/31/2024 19:47:52 01/27/20 25 01/26/2025 CBC CBC Not Available Md Only - [facility] [address] [place] [address], [address], 01/26/2025 19:26:20 01/27/20 25 01/26/2025 CBC WBC 5.1 K/uL 3.8-11 .2 Not Available [facility] - [facility] [address] [place] [address], [address], 01/26/2025 19:26:20 01/27/2001/26/2025 CBC RBC 3.73 M/uL 3.92-5 .10 low Not Available [facility] - [facility] [address] [place] [address], [address], 01/26/2025 19:26:20 01/27/2001/26/2025 CBC HGB 12.0 g/dL 11.8-1 5.3 Not Available [facility] Only - [facility] [address] [place] [address], [address], 01/26/2025 19:26:20 01/27/2001/26/2025 CBC HCT 35.9 % 36.5-4 4.8 low Not Available [facility] - [facility] [address] [place] [address], [address], 01/26/2025 19:26:20 01/27/20 25 01/26/2025 CBC MCV 96.2 fL 80.0-9 9.0 Not Available [facility] Only - [facility] [address] [place] [address], [address], 01/26/2025 19:26:20 01/27/20 25 01/26/2025 CBC MCH 32.2 pg 25.5-3 3.6 Not Available [facility] Only - [facility] [address] [place] [address], [address], 01/26/2025 19:26:20 01/27/2001/26/2025 CBC MCHC 33.4 g/dL 32.0-3 6.0 Not Available [facility] Only - [facility] [address] [place] [address], [address], 01/26/2025 19:26:20 01/27/20 25 01/26/2025 CBC RDW-SD 58.2 fL 35.1 - 46.3 high Not Available [facility] Only - [facility] [address] [place] [address], [address], 01/26/2025 19:26:20 01/27/2001/26/2025 CBC plt 209 K/uL 130-40 0 Not Available Md Only - [facility] [address] [place] [address], [address], 01/26/2025 19:26:20 01/27/20 25 01/26/2025 CBC MPV 11.1 fL 9.3-12 .8 Not Available Md Only - [facility] [address] [place] [address], [address], 01/26/2025 19:26:20 01/27/20 25 01/26/2025 creat inine , serum or plasm a creatinine- Not Available Md Onl y - [facility] [address] [place] [address], [address], 01/26/2025 19:45:38 01/27/20 25 01/26/2025 creat inine , serum or plasm a creatinine 0.9 mg/dL 0.7-1. 3 Not Available Md Only - [facility] [address] [place] [address], [address], 01/26/2025 19:45:38 01/27/20 25 01/26/2025 creat inine , serum or plasm a CKD-epi GFR 68 eGFR was calcu lated using the 2020 CKD-E PI equat ion. (Leveling Machine Operator josi Kidne y Disea se has an eGFR less than 60 mL/mi n/1.7 3mm for a perio d of three month s or more. ) This calcu latio n has not been valid ated for patie nt ages <18 or >90 years old. Not Available Md Only - [facility] [address] [place] [address], [address], 01/26/2025 19:45:38 01/27/20 25 01/26/2025 ALT (finesse ine amino trans feras e), serum or plasm a ALT (SGPT) Not Available Md Only - [facility] [address] [place] [address], [address], 01/26/2025 19:45:41 01/27/20 25 01/26/2025 ALT (finesse ine amino trans feras e), serum or plasm a ALT (SGPT) 20 U/L 8-35 Not Available Md Only - [facility] [address], [address], 01/26/2025 19:45:41 06/14/20 LDCT, chest , for lung cance r norma [facility] [address] [address] [phone] ------ ---NAM E----- ---- NUMBER SEX AGE ADMIT DISC. XRAY# F/C TYPE MARK ANTHONY S CLARI ET [id number] 5 F 72 [id number] [id number] O/P DATE OF : 1949 M/R# [id number] PH#: LOCATI ON: TRANSC RIBED: 13:16 CT LUNG SCREEN ING [id number] [facility] [place]: [id number] {REASO N FOR LUNG SCREEN ING: Z87.89 1 Z12.2 PHYSIC CATY: RAZA NISR ====== ====== ====== ====== ====== ====== ====== ====== ====== ====== ====== ====== ====== R A D I O L O G Y R E P O R T ====== ====== ====== ====== ====== ====== ====== ====== ====== ====== ====== ====== ====== EXAM: Lung Cancer Screen ing CT COMPAR MORALES : Chest CT 2021 HISTOR Y: Smokin g Status : Former Number of years smoked : 54 Number of packs per day: 1 Number of years since quit smokin years TECHNI QUE: Low dose CT scan of the chest was perfor med withou t IV contra st admini strati on using helica l scanni ng techni que. The exam extend s from the lung apices throug h the lung bases. Automa georgina exposu re contro l and iterat holger recons tructi on was used for dose optimi zation on this exam. NOTE: This study was perfor med for the specif ic purpos e of lung screen ing and is not an altern ative to diagno stic chest CT. FINDIN GS: Mild pulmon anila emphys mark. The large centra l airway s are patent . No acute conflu ent pulmon anila opacit y. Stable tiny 2 mm nodule s in the lung apices . The no new or enlarg ing pulmon anila nodule . Heart size is normal withou t perica rdial effusi on. Thorac ic aorta is normal in calibe r. No thorac ic lympha denopa thy. No pleura l effusi on. Limite d images of the upper abdome n demons trate no acute abnorm alitie s. Spleno megaly measur ing 15 cm in anteri or-pos terior dimens ion, simila r to the prior study. Bone window s: No acute osseou s abnorm ality. Diffus e degene rative disc diseas e of the thorac ic spine. IMPRES PILO: 1. Mild pulmon anila emphys mark. 2. Stable scatte red tiny pulmon anila nodule s. 3. Stable mild spleno megaly . 4. No acute abnorm ality. Lung-R ADS Catego ry: 2: Benign Recomm endati on: Contin ued LDCT Screen ing in 12 months . Dictat ed By: TATIANA STAFFORD M.D. RADIOL OGIST Review ed and Electr onical ly Signed by: _ TATIANA STAFFORD M.D. RADIOL OGIST DCRED Signed Date: 13:16 [email or web address] Sc Only - [facility] [address] , [place], [address], 06/14/2024 14:46:27 06/18/20 24 06/17/2024 6 minut e walk test* No observ ation record ed. BARCODE Morro Sweet MD [address] , [place], [address], 06/18/2024 10:32:52 07/07/20 24 MRI, chest + abdom en + pelvi s, w/o contr ast [facility] [address] [place] [id number] [phone] ------ ---NAM E----- ---- NUMBER SEX AGE ADMIT DISC. XRAY# F/C TYPE MARK ANTHONY S CLARI ET [id number] 5 F 74 [id number] MB3 O/P DATE OF : 1949 M/R# [id number] PH#: LOCATI ON: TRANSC RIBED: 10:26 [place] [id number] COMPLE [place]A: 8:46 RESPIRATORY EQUIPMENT ASSISTANT 784 {REASO N FOR CHEST: R PHYSIC CATY: RAE FOSTER CHR ====== ====== ====== ====== ====== ====== ====== ====== ====== ====== ====== ====== ====== R A D I O L O G Y R E P O R T ====== ====== ====== ====== ====== ====== ====== ====== ====== ====== ====== ====== ====== EXAM: MRI CHEST WO HISTOR Y: Possib le mass seen right chest wall region on CT Chest done here. Histor y of lipoma s. No compla ints at time of imagin g. CTA Chest COMPAR MORALES: None TECHNI QUE: Multip lanar, multis equenc e MR images of the right chest wall were obtain ed on a high field scanne r withou t contra st. FINDIN GS: Center ed within the right pector nadine minor muscle is an area of T2 hyperi ntensi ty and T1 hypoin tensit y measur ing 5.4 x 2 cm. Deep to this area there is a second simila r appear ing lesion at image 20 measur ing 1.9 x 1 cm. There are adjace nt mildly enlarg ed subpec montse lymph nodes. No acute bone destru ction or fractu re is seen. Rotato r cuff tendin opathy is seen with partia l thickn ess tearin g. IMPRES PILO: Indete rminat e mass-l alex thicke suzy of the right pector nadine minor muscle with adjace nt mildly enlarg ed subpec montse lymph nodes. This is incomp letely charac terize d on a noncon trast MRI. Differ ential diagno sis would includ e an evolvi ng hemato ma in the settin g of trauma versus an underl leeanna mass/m aligna ncy. Furthe r evalua tion with postco ntrast imagin g is recomm ended. Altern ately this could be furthe r charac terize d with a PET CT. Dictat ed By: IRAJ Shoemaker M.D. RADIOL OGIST Review ed and Electr onical ly Signed by: _ IRAJ Shoemaker M.D. RADIOL OGIST DCRED Signed Date: 10:26 [email or web address] Md Only - [facility] [address], [place], [address], 07/09/2024 11:48:19 07/26/20 24 07/26/2024 elect rocar diogr am, routi ne ECG, 12 leads min No observ ation record ed. INTERFACE Sc Only - [facility] [address] [address], [place], [address], 07/26/2024 15:27:52 08/06/19 25 07/26/2024 anjelica alexander amindia ne ECG, 12 leads min No observ ation record ed. INTERFACE Sc Only - [facility] [address] [address], [place], [address], 08/06/2024 08:13:07 08/29/19 25 08/24/2024 eos No observ ation record ed. INTERFACE [employer] [address], [place], [address], 08/29/2024 19:30:38 09/09/19 25 XR, abdom en, 1 view [facility] [place] [facility] [address] [facility] [place] [address] [phone] ------ ---NAM E----- ---- NUMBER SEX AGE ADMIT DISC. XRAY# F/C TYPE MARK ANTHONY S CLARI ET [id number] 1 F 74 5 5 [id number] MB3 O/P DATE OF : 1949 M/R# [id number] PH#: LOCATI ON: TRANSC RIBED: 14:00 ABDOME N 1 V [id number] COMPLE [place]: [id number] {REASO N FOR ABD: r14.0 PHYSIC CATY: MALIA N MO ====== ====== ====== ====== ====== ====== ====== ====== ====== ====== ====== ====== ====== R A D I O L O G Y R E P O R T ====== ====== ====== ====== ====== ====== ====== ====== ====== ====== ====== ====== ====== EXAMIN ATION: ABDOME N 1 V HISTOR Y: chroni c shortn ess of breath severe ly worsen ing over last week, diagno sed with lympho ma 07/27, Histor y of emphys mark, hypert ension . Former smoker . COMPAR MORALES: CT abdome n and pelvis TECHNI QUE: Single view of the abdome n. 2 images submit georgina ZAIDA GS: There is a small right pleura l effusi on. Cholec ystect gonzález clips presen t. Partia l gaseou s disten tion of the stomac h. No dilate d small bowel segmen ts. Scatte red fecal materi al in the colon to the level of the sigmoi d colon. Pelvic calcif icatio n presen t. There are degene rative change s in the spine and right hip. Left hip arthro plasty hardwa re partia lly visual ized. IMPRES PILO: Small right pleura l effusi on. This report was dictat ed remote ly by a [facility] Radiol ogist in [place], [place]. Dictat ed By: MARIBEL ORTIZ M.D. RADIOL OGIST Review ed and Electr onical ly Signed by: _ MARIBEL ORTIZ M.D. RADIOL OGIST DCRED Signed Date: 14:00 INTERFACE Md Only - [facility] [address] , [place], [address], 09/09/2024 15:04:43 09/09/19 25 MRI, cervi cotho racic spine , w/wo contr aga [facility] [address] [place] [address] [phone] ------ ---NAM E----- ---- NUMBER SEX AGE ADMIT DISC. XRAY# F/C TYPE WINTER S CLARI PAGE [id number] 1 F 74 5 5 [id number] MB3 O/P DATE OF : 1949 M/R# [id number] #: LOCATI ON: TRANSC RIBED: 15:57 MRI THORAC IC W/WO [id number] COMPLE [place]: 15:40 [facility] 6635 {REASO N FOR THORAC IC: R PHYSIC CATY: HUSSAI N MO ====== ====== ====== ====== ====== ====== ====== ====== ====== ====== ====== ====== ====== R A D I O L O G Y R E P O R T ====== ====== ====== ====== ====== ====== ====== ====== ====== ====== ====== ====== ====== Examin ation: MRI THORAC IC W/WO MRI LUMBAR W/WO Histor y: Recent findin gs of Lympho ma with mets per patien t. Pain in back, pelvis and groin. MRI Chest 4 Compar isons: PET CT . MRI lumbar spine . Techni que: MRI of the thorac ic and lumbar spine before and after the uneven tful intrav enous admini strati on of 15 mL dotare m at the patien t's Infuse -A-Por t. T1-tae ghted, T2-tae ghted, STIR weight ed images were obtain ed. Findin gs: MRI thorac ic spine: There is normal alignm ent. There are mild chroni c compre ssion deform ities in the mid-th oracic spine. There is no eviden ce of recent fractu re. There are multil evel degene rative endpla te signal change s and scatte red benign intrao sseous mana iomata . There are no worris ome focal osseou s lesion s. There are multil evel Schmor l's nodes. There is multil evel degene rative disc desicc ation and disc height loss with anteri or plate osteop hyte format ion. There is partia l osseou s fusion across the T4-5 disc space. There are multil evel diffus e disc bulges . There is a small centra l disc protru pilo at T5-6. There is a small centra l disc extrus ion at T6-7 that is slight ly migrat ed superi hannah. There is no signif icant spinal canal stenos is at any thorac ic level. Thorac ic spinal cord demons trates normal signal charac terist ics and positi oning. Thorac ic neural forami na appear patent . There is a small focus of STIR hyperi ntense signal and enhanc ement in the muscul ature of the left resin remover ior chest wall, as can be seen for exampl e on series 33 image 1, corres pondin g to hyperm etabol ism on prior PET CT, in keepin g with focal lympho matous involv ement of the muscle . No eviden ce of spinal mass. Aside from degene rative endpla te enhanc ement, no pathol ogic spinal enhanc ement is seen. The prever tebral and perive rtebra l soft tissue s are unrema rkable . Small bilate ral pleura l effusi ons are partia lly imaged . MRI lumbar spine: There are 5 lumbar type verteb rohit. There is mild dextro convex lumbar spine curvat ure. Verteb ral body height s are preser rodri, aside from scatte red Schmor l's nodes. There are multil evel degene rative endpla te signal change s. There are a few benign intrao sseous mana iomata . No worris ome focal osseou s lesion s. There is multil evel degene rative disc desicc ation and disc height loss, greate st at L3-4 and L5-S1. There are small anteri or plate osteop hytes. Conus medull douglas appear s normal , tip termin ating normal ly at the L2 level. Cauda equina nerve roots are normal in course and calibe r. There is no worris ome pathol ogic spinal enhanc ement after contra st admini strati on. The prever tebral and perive rtebra l soft tissue s are unrema rkable . A hyperm etabol ic focus seen on prior PET CT in the left resin remover ior parasp inal muscul ature of the lower lumbar spine does not have a clear correl ate on the curren t MRI. Findin gs by indivi dual disc level are as follow s: T12-L1 : No disc bulge or hernia tion. No spinal canal or forami nal stenos is. L1-2: Mild disc bulge. No spinal canal or forami nal stenos is. L2-3: Mild disc bulge. No canal or forami nal stenos is. L3-4: Modera te disc bulge with accomp anying endpla te osteop hyte, eccent kia to the left. Facet hypert rophy ligame ntous thicke suzy. These factor s result in mild left and no right forami nal stenos is. No signif icant canal stenos is. L4-5: Mild to modera te disc bulge with accomp anying endpla te osteop hyte. Facet hypert rophy and ligame ntous thicke suzy. These factor s result in mild right and no left forami nal stenos is. No canal stenos is. L5-S1: There are old postop erativ e change s at this level, likely an old right hemila minoto my. Modera te disc bulge with accomp anying endpla te osteop hyte, eccent kia to the right. There is a superi mposed right forami nal disc protru pilo. Facet hypert rophy and ligame ntous thicke suzy. These factor s result in modera te right and minima l if any left forami nal stenos is. No canal stenos is. In compar morales with the prior lumbar spine MRI from 2014, findin gs at L5-S1 appear s stable otherw ise there has been interv al progre ssion of degene rative findin gs elsewh ere in the lumbar spine. Impres pilo: MRI thorac ic spine: 1. No eviden ce of focal lympho matous involv ement of the thorac ic spine. 2. Lympho matous involv ement of the muscul ature of the left resin remover ior chest wall, as seen on prior PET CT. 3. Multil evel degene rative disc diseas e. No signif icant spinal canal or forami nal stenos is. MRI lumbar spine: 1. No eviden ce of focal lympho matous involv ement of the lumbar spine. 2. Small right forami nal disc protru pilo at L5-S1 contri butes to modera te right forami nal stenos is, simila r to prior MRI from 2015. 3. Degene rative disc diseas e and facet arthro vargas elsewh ere in the lumbar spine, progre ssed since the 2015 MRI, now with mild degene rative forami nal stenos is at L3-4 and L4-5. See above for detail s. 4. Stable postop erativ e change s at L5-S1. Dictat ed By: LUIS ESPINAL M.D. RADIOL OGIST Review ed and Electr onical ly Signed by: _ LUIS ESPINAL M.D. RADIOL OGIST DCRED Signed Date: 15:57 INTERFACE Sc Only - [facility] [address] [facility] [address], [place], [address], 09/09/2024 17:02:44 09/09/19 25 MRI, cervi cotho racol umbar spine , w/wo contr ast [facility] [address] [place] [id number] [phone] ------ ---NAM E----- ---- NUMBER SEX AGE ADMIT DISC. XRAY# F/C TYPE MARK ANTHONY S CLARI ET [id number] F 74 5 5 [id number] MB3 O/P DATE OF : 1949 M/R# [id number] PH#: LOCATI ON: TRANSC RIBED: 15:57 MRI LUMBAR W/WO [id number] COMPLE GEORGINA: 15:40 [facility] 6633 {REASO N FOR LUMBAR : R PHYSIC CATY: ARTI N MO ====== ====== ====== ====== ====== ====== ====== ====== ====== ====== ====== ====== ====== R A D I O L O G Y R E P O R T ====== ====== ====== ====== ====== ====== ====== ====== ====== ====== ====== ====== ====== Examin ation: MRI THORAC IC W/WO MRI LUMBAR W/WO Histor y: Recent findin gs of Lympho ma with mets per patien t. Pain in back, pelvis and groin. MRI Chest 4 Compar isons: PET CT . MRI lumbar spine . Techni que: MRI of the thorac ic and lumbar spine before and after the uneven tful intrav enous admini strati on of 15 mL dotare m at the patien t's Infuse -A-Por t. T1-tae ghted, T2-tae ghted, STIR weight ed images were obtain ed. Findin gs: MRI thorac ic spine: There is normal alignm ent. There are mild chroni c compre ssion deform ities in the mid-th oracic spine. There is no eviden ce of recent fractu re. There are multil evel degene rative endpla te signal change s and scatte red benign intrao sseous mana iomata . There are no worris ome focal osseou s lesion s. There are multil evel Schmor l's nodes. There is multil evel degene rative disc desicc ation and disc height loss with anteri or plate osteop hyte format ion. There is partia l osseou s fusion across the T4-5 disc space. There are multil evel diffus e disc bulges . There is a small centra l disc protru pilo at T5-6. There is a small centra l disc extrus ion at T6-7 that is slight ly migrat ed superi hannah. There is no signif icant spinal canal stenos is at any thorac ic level. Thorac ic spinal cord demons trates normal signal charac terist ics and positi oning. Thorac ic neural forami na appear patent . There is a small focus of STIR hyperi ntense signal and enhanc ement in the muscul ature of the left resin remover ior chest wall, as can be seen for exampl e on series 33 image 1, corres pondin g to hyperm etabol ism on prior PET CT, in keepin g with focal lympho matous involv ement of the muscle . No eviden ce of spinal mass. Aside from degene rative endpla te enhanc ement, no pathol ogic spinal enhanc ement is seen. The prever tebral and perive rtebra l soft tissue s are unrema rkable . Small bilate ral pleura l effusi ons are partia lly imaged . MRI lumbar spine: There are 5 lumbar type verteb rohit. There is mild dextro convex lumbar spine curvat ure. Verteb ral body height s are preser rodri, aside from scatte red Schmor l's nodes. There are multil evel degene rative endpla te signal change s. There are a few benign intrao sseous mana iomata . No worris ome focal osseou s lesion s. There is multil evel degene rative disc desicc ation and disc height loss, greate st at L3-4 and L5-S1. There are small anteri or plate osteop hytes. Conus medull duoglas appear s normal , tip termin ating normal ly at the L2 level. Cauda equina nerve roots are normal in course and calibe r. There is no worris ome pathol ogic spinal enhanc ement after contra st admini strati on. The prever tebral and perive rtebra l soft tissue s are unrema rkable . A hyperm etabol ic focus seen on prior PET CT in the left resin remover ior parasp inal muscul ature of the lower lumbar spine does not have a clear correl ate on the curren t MRI. Findin gs by indivi dual disc level are as follow s: T12-L1 : No disc bulge or hernia tion. No spinal canal or forami nal stenos is. L1-2: Mild disc bulge. No spinal canal or forami nal stenos is. L2-3: Mild disc bulge. No canal or forami nal stenos is. L3-4: Modera te disc bulge with accomp anying endpla te osteop hyte, eccent kia to the left. Facet hypert rophy ligame ntous thicke suzy. These factor s result in mild left and no right forami nal stenos is. No signif icant canal stenos is. L4-5: Mild to modera te disc bulge with accomp anying endpla te osteop hyte. Facet hypert rophy and ligame ntous thicke suzy. These factor s result in mild right and no left forami nal stenos is. No canal stenos is. L5-S1: There are old postop erativ e change s at this level, likely an old right hemila minoto my. Modera te disc bulge with accomp anying endpla te osteop hyte, eccent kia to the right. There is a superi mposed right forami nal disc protru pilo. Facet hypert rophy and ligame ntous thicke suzy. These factor s result in modera te right and minima l if any left forami nal stenos is. No canal stenos is. In compar morales with the prior lumbar spine MRI from 2015, findin gs at L5-S1 appear s stable otherw ise there has been interv al progre ssion of degene rative findin gs elsewh ere in the lumbar spine. Impres pilo: MRI thorac ic spine: 1. No eviden ce of focal lympho matous involv ement of the thorac ic spine. 2. Lympho matous involv ement of the muscul ature of the left resin remover ior chest wall, as seen on prior PET CT. 3. Multil evel degene rative disc diseas e. No signif icant spinal canal or forami nal stenos is. MRI lumbar spine: 1. No eviden ce of focal lympho matous involv ement of the lumbar spine. 2. Small right forami nal disc protru pilo at L5-S1 contri butes to modera te right forami nal stenos is, simila r to prior MRI from 2014. 3. Degene rative disc diseas e and facet arthro vargas elsewh ere in the lumbar spine, progre ssed since the 2015 MRI, now with mild degene rative forami nal stenos is at L3-4 and L4-5. See above for detail s. 4. Stable postop erativ e change s at L5-S1. Dictat ed By: LUIS ESPINAL M.D. RADIOL OGIST Review ed and Electr onical ly Signed by: _ LUIS ESPINAL M.D. RADIOL OGIST DCRED Signed Date: 15:57 INTERFACE Sc Only - [facility] Rad [address] [facility] , [place], [address], 09/09/2024 17:03:01 09/13/19 25 MRI, pelvi s, w/wo contr ast [facility] [address] [id number] [phone] ------ ---NAM E----- ---- NUMBER SEX AGE ADMIT DISC. XRAY# F/C TYPE MARK ANTHONY MILLER [id number] F 74 5 5 [id number] MB3 O/P DATE OF : 1949 M/R# [id number] PH#: LOCATI ON: TRANSC RIBED: 11:06 MRI PELVIS W/WO [id number] COMPLE GEORGINA: 15:40 [facility] 6634 {REASO N FOR PELVIS : R PHYSIC CATY: HUSSAI N MO ====== ====== ====== ====== ====== ====== ====== ====== ====== ====== ====== ====== ====== R A D I O L O G Y R E P O R T ====== ====== ====== ====== ====== ====== ====== ====== ====== ====== ====== ====== ====== EXAM: MRI PELVIS W/WO HISTOR Y: Recent findin gs of Lympho ma with mets per patien t. Pain in back, pelvis and groin. MRI Chest , MRI Lumbar 10/04/23 COMPAR MORALES:N one TECHNI QUE: MRI of the pelvis was perfor med The exam was perfor med with and withou t IV Contra st. 15ml of Dotare m was inject ed throug h infusa port withou t eviden ce of advers e reacti on. FINDIN GS: There is a left hip arthro plasty . There is modera te right hip joint osteoa rthrit is. There is a right hip joint effusi on with synovi tis. There is severe degene rative disc space narrow ing in the visual ized lumbar spine. There is right- sided greate r trocha nteric bursit is. Bone marrow signal s withou t eviden ce of worris ome marrow replac ing lesion . There is no fractu re, stress fractu re, or avascu lar necros is. There is a small amount of free fluid in the pelvis . There is bilate ral hamstr ing origin tendin opathy . IMPRES PILO: 1. No worris ome marrow replac ing lesion seen in the pelvis 2. Modera te right hip joint osteoa rthrit is. Right hip joint effusi on with synovi tis. Dictat ed By: IRAJ Shoemaker M.D. RADIOL OGIST Review ed and Electr onical ly Signed by: _ IRAJ Shoemaker M.D. RADIOL OGIST DCRED Signed Date: 11:06 INTERFACE Md Only - [facility] Rad [address], [place], [address], 09/13/2024 12:10:31 11/26/[address], head, w/o contr ast [facility] [address] [facility] [place] [id number] [phone] ------ ---NAM E----- ---- NUMBER SEX AGE ADMIT DISC. XRAY# F/C TYPE MARK ANTHONY S CLARI PAGE [id number] F 74 5 5 [id number] MB3 O/P DATE OF : 1949 M/R# [id number] PH#: LOCATI ON: TRANSC RIBED: 7:[place] [id number] COMPLE GEORGINA: [id number] {REASO N FOR CT HEAD: R PHYSIC CATY: HUSSAI N MO ====== ====== ====== ====== ====== ====== ====== ====== ====== ====== ====== ====== ====== R A D I O L O G Y R E P O R T ====== ====== ====== ====== ====== ====== ====== ====== ====== ====== ====== ====== ====== EXAMIN ATION: CT HEAD WO HISTOR Y: Increa sing dizzin ess, short term memory loss for 3 months . COMPAR MORALES: (None provid ed.) TECHNI QUE: Axial images throug h the brain withou t admini strati on of contra st. Automa georgina exposu re contro l was used for dose optimi zation on this exam. FINDIN GS: No intrac ranial hemorr anthony, mass, or mass effect . Terrazas-w sarah matter differ entiat ion is preser rodri. No hydroc ephalu s. There is bifron zaheer cortic al atroph y. Mild dimini shed attenu ation in the perive ntricu lar white matter which is nonspe cific, but most common ly relate d to chroni c small vessel ischem ic change . No abnorm al extra- axial fluid collec tion. Brains tem, cerebe llum, and cranio cervic al juncti on are unrema rkable . There is bilate ral maxill anila and ethmoi d sinus mucosa l thicke suzy with right fronta l sinus mucosa l thicke suzy. Possib le air-fl uid level within the left maxill anila sinus. IMPRES PILO: No acute intrac ranial abnorm ality. Chroni c parana mercy sinus diseas e with possib le acute sinusi tis left maxill anila sinus. Dictat ed By: NAILA Thornton, DO RADIOL OGIST Review ed and Electr onical ly Signed by: _ NAILA Thornton, DO RADIOL OGIST DCRED Signed Date: 07:46 INTERFACE Sc Only - [facility] Rad [address] [facility] [address], [place], [address], 11/25/2024 08:49:45 01/07/20 25 mm scree suzy bilat obinna hd [facility] [address] [place] [address] [phone] ------ ---NAM E----- ---- NUMBER SEX AGE ADMIT DISC. XRAY# F/C TYPE WINTER S CLARI ET [id number] F 74 5 5 [id number] MB3 O/P DATE OF : 1949 M/R# [id number] PH#: LOCATI ON: TRANSC RIBED: 15:13 [place] [id number] COMPLE GEORGINA: 14:32 TAC [id number] {REASO N FOR BREAST : SCREEN ING YEARLY PHYSIC CATY: CRISTIAN CH ====== ====== ====== ====== ====== ====== ====== ====== ====== ====== ====== ====== ====== R A D I O L O G Y R E P O R T ====== ====== ====== ====== ====== ====== ====== ====== ====== ====== ====== ====== ====== ACCESS ION: [id number] CLINIC AL HISTOR Y: Angélica britton is 74 years old and is seen for screen ing. The angélica britton has a histor y of lympho ma in [facility], 2023. The angélica britton has the follow ing family histor y of breast cancer : matern al grandm other. No PALB2 test taken. FILMS COMPAR ED: The presen t examin ation has been compar ed to prior imagin g studie s [facility] on 2021, 2022 and 2023. OBINNA MAMMOG GUIDO: Views perfor med: Bilate ral CC w/ Obinna and bilate ral MLO w/ Obinna. The breast s are hetero geneou sly dense, which may obscur e small masses . There are no suspic ious masses , calcif icatio ns or areas of steve ectura l distor tion. IMPRES PILO: There is no mammog raphic eviden ce of malign alejandro. A routin e follow -up mammog guido in 1 year is recomm ended. The angélica britton will be entere d into an automa georgina remind er system to schedu le a mammog guido in 1 year. The patien t has been or will be contac georgina with the result s of this exam. ACR BI-RAD S Catego ry 1 - Negati ve Electr onical ly signed by: JESUS Vazquez MD Dictat ed By: JESUS Vazquez M.D. RADIOL OGIST Review ed and Electr onical ly Signed by: _ JESUS Vazquez M.D. RADIOL OGIST DCRED Signed Date: 15:13 INTERFACE Md Only - [facility] [address] [facility] , [place], [address], 01/06/2025 16:15:59 Result Notes Documentation Provider Name and Address Organization Details Recorded Time Mri, Chest + Abdomen + Pelvis, W/o Contrast : [address] [address] ---------NAME--------- NUMBER SEX AGE ADMIT DISC. XRAY# F/C TYPE SHARONDA GALLAGHER [id number] F 74 07/07/24 07/07/24 [id number] MB3 O/P DATE OF : 1950 M/R# [id number] PH#: [id number] LOCATION: TRANSCRIBED: 07/07/24 10:26 [place] [id number] COMPLETED:07/07/24 8:46 [employer]ATORY EQUIPMENT ASSISTANT 784 {REASON FOR CHEST: R PHYSICIAN: RAE FOSTER CHR R A D I O L O G Y R E P O R T EXAM: MRI CHEST WO HISTORY: Possible mass seen right chest wall region on CT Chest done here. History of lipomas. No complaints at time of imaging. CTA Chest 06/20/24 COMPARISON: None TECHNIQUE: Multiplanar, multisequence MR images of the right chest wall were obtained on a high field scanner without contrast. FINDINGS: Centered within the right pectoralis minor muscle is an area of T2 hyperintensity and T1 hypointensity measuring 5.4 x 2 cm. Deep to this area there is a second similar appearing lesion at image 20 measuring 1.9 x 1 cm. There are adjacent mildly enlarged subpectoral lymph nodes. No acute bone destruction or fracture is seen. Rotator cuff tendinopathy is seen with partial thickness tearing. IMPRESSION: Indeterminate mass-like thickening of the right pectoralis minor muscle with adjacent mildly enlarged subpectoral lymph nodes. This is incompletely characterized on a noncontrast MRI. Differential diagnosis would include an evolving hematoma in the setting of trauma versus an underlying mass/malignancy. Further evaluation with postcontrast imaging is recommended. Alternately this could be further characterized with a PET CT. Dictated By: KARTHIK JUNG M.D. RADIOLOGIST Reviewed and Electronically Signed by: KARTHIK JUNG M.D. RADIOLOGIST DCRED Signed Date: 07/07/24 10:26 [facility] 11:48:19 Xr, Abdomen, 1 View : FAISAL Liang [address] [address] ---------NAME--------- NUMBER SEX AGE ADMIT DISC. XRAY# F/C TYPE SHARONDA GALLAGHER [id number] F 74 09/09/24 09/09/24 [id number] MB3 O/P DATE OF : 1950 M/R# [id number] #: [id number] LOCATION: TRANSCRIBED: 09/09/24 14:00 ABDOMEN 1 V 73372 COMPLETED: 6681 {REASON FOR ABD: r14.0 PHYSICIAN: GREGORY MO R A D I O L O G Y R E P O R T EXAMINATION: ABDOMEN 1 V HISTORY: chronic shortness of breath severely worsening over last week, diagnosed with lymphoma 07/27, History of emphysema, hypertension. Former smoker. COMPARISON: CT abdomen and pelvis 10/09/23 TECHNIQUE: Single view of the abdomen. 2 images submitted FINDINGS: There is a small right pleural effusion. Cholecystectomy clips present. Partial gaseous distention of the stomach. No dilated small bowel segments. Scattered fecal material in the colon to the level of the sigmoid colon. Pelvic calcification present. There are degenerative changes in the spine and right hip. Left hip arthroplasty hardware partially visualized. IMPRESSION: Small right pleural effusion. This report was dictated remotely by a [facility] Radiologist in [place], [place]. Dictated By: MARIBEL ORTIZ M.D. RADIOLOGIST Reviewed and Electronically Signed by: MARIBEL ORTIZ M.D. RADIOLOGIST DCRED Signed Date: 09/09/24 14:00 Not Available [facility] 09/09/2024 15:04:44 Mri, Cervicothoracic Spine, W/wo Contrast : [address] [address] ---------NAME--------- NUMBER SEX AGE ADMIT DISC. XRAY# F/C TYPE SHARONDA GALLAGHER [id number] F 74 09/09/24 09/09/24 23753 MB3 O/P DATE OF : 1950 M/R# [id number] #: [id number] LOCATION: TRANSCRIBED: 09/09/24 15:57 MRI THORACIC W/WO [id number] COMPLETED:09/09/24 15:40 [facility] 6635 {REASON FOR THORACIC: R PHYSICIAN: GREGORY MO R A D I O L O G Y R E P O R T Examination: MRI THORACIC W/WO MRI LUMBAR W/WO History: Recent findings of Lymphoma with mets per patient. Pain in back, pelvis and groin. MRI Chest 07/07/24 Comparisons: PET CT 07/15/24. MRI lumbar spine 10/03/14. Technique: MRI of the thoracic and lumbar spine before and after the uneventful intravenous administration of 15 mL dotarem at the patient's Cktsoi-A-Dqkc. T1-weighted, T2-weighted, STIR weighted images were obtained. Findings: MRI thoracic spine: There is normal alignment. There are mild chronic compression deformities in the mid-thoracic spine. There is no evidence of recent fracture. There are multilevel degenerative endplate signal changes and scattered benign intraosseous hemangiomata. There are no worrisome focal osseous lesions. There are multilevel Schmorl's nodes. There is multilevel degenerative disc desiccation and disc height loss with anterior plate osteophyte formation. There is partial osseous fusion across the T4-5 disc space. There are multilevel diffuse disc bulges. There is a small central disc protrusion at T5-6. There is a small central disc extrusion at T6-7 that is slightly migrated superiorly. There is no significant spinal canal stenosis at any thoracic level. Thoracic spinal cord demonstrates normal signal characteristics and positioning. Thoracic neural foramina appear patent. There is a small focus of STIR hyperintense signal and enhancement in the musculature of the left posterior chest wall, as can be seen for example on series 33 image 1, corresponding to hypermetabolism on prior PET CT, in keeping with focal lymphomatous involvement of the muscle. No evidence of spinal mass. Aside from degenerative endplate enhancement, no pathologic spinal enhancement is seen. The prevertebral and perivertebral soft tissues are unremarkable. Small bilateral pleural effusions are partially imaged. MRI lumbar spine: There are 5 lumbar type vertebrae. There is mild dextroconvex lumbar spine curvature. Vertebral body heights are preserved, aside from scattered Schmorl's nodes. There are multilevel degenerative endplate signal changes. There are a few benign intraosseous hemangiomata. No worrisome focal osseous lesions. There is multilevel degenerative disc desiccation and disc height loss, greatest at L3-4 and L5-S1. There are small anterior plate osteophytes. Conus medullaris appears normal, tip terminating normally at the L2 level. Cauda equina nerve roots are normal in course and caliber. There is no worrisome pathologic spinal enhancement after contrast administration. The prevertebral and perivertebral soft tissues are unremarkable. A hypermetabolic focus seen on prior PET CT in the left posterior paraspinal musculature of the lower lumbar spine does not have a clear correlate on the current MRI. Findings by individual disc level are as follows: T12-L1: No disc bulge or herniation. No spinal canal or foraminal stenosis. L1-2: Mild disc bulge. No spinal canal or foraminal stenosis. L2-3: Mild disc bulge. No canal or foraminal stenosis. L3-4: Moderate disc bulge with accompanying endplate osteophyte, eccentric to the left. Facet hypertrophy ligamentous thickening. These factors result in mild left and no right foraminal stenosis. No significant canal stenosis. L4-5: Mild to moderate disc bulge with accompanying endplate osteophyte. Facet hypertrophy and ligamentous thickening. These factors result in mild right and no left foraminal stenosis. No canal stenosis. L5-S1: There are old postoperative changes at this level, likely an old right hemilaminotomy. Moderate disc bulge with accompanying endplate osteophyte, eccentric to the right. There is a superimposed right foraminal disc protrusion. Facet hypertrophy and ligamentous thickening. These factors result in moderate right and minimal if any left foraminal stenosis. No canal stenosis. In comparison with the prior lumbar spine MRI from 2015, findings at L5-S1 appears stable otherwise there has been interval progression of degenerative findings elsewhere in the lumbar spine. Impression: MRI thoracic spine: 1. No evidence of focal lymphomatous involvement of the thoracic spine. 2. Lymphomatous involvement of the musculature of the left posterior chest wall, as seen on prior PET CT. 3. Multilevel degenerative disc disease. No significant spinal canal or foraminal stenosis. MRI lumbar spine: 1. No evidence of focal lymphomatous involvement of the lumbar spine. 2. Small right foraminal disc protrusion at L5-S1 contributes to moderate right foraminal stenosis, similar to prior MRI from 2015. 3. Degenerative disc disease and facet arthropathy elsewhere in the lumbar spine, progressed since the 2015 MRI, now with mild degenerative foraminal stenosis at L3-4 and L4-5. See above for details. 4. Stable postoperative changes at L5-S1. Dictated By: LUIS PLASENCIA M.D. RADIOLOGIST Reviewed and Electronically Signed by: LUIS PLASENCIA M.D. RADIOLOGIST DCRED Signed Date: 09/09/24 15:57 Not Available [facility] 09/09/2024 17:02:44 Mri, Cervicothoracolumbar Spine, W/wo Contrast : [address] [address] ---------NAME--------- NUMBER SEX AGE ADMIT DISC. XRAY# F/C TYPE RAJPUTSahara CAHMPAGNET [id number] F 74 09/09/24 09/09/24 [id number] MB3 O/P DATE OF : 1950 M/R# [id number] #: [id number] LOCATION: TRANSCRIBED: 09/09/24 15:57 MRI LUMBAR W/WO [id number] COMPLETED:09/09/24 15:40 [facility] 6633 {REASON FOR LUMBAR: R PHYSICIAN: GREGORY MO R A D I O L O G Y R E P O R T Examination: MRI THORACIC W/WO MRI LUMBAR W/WO History: Recent findings of Lymphoma with mets per patient. Pain in back, pelvis and groin. MRI Chest 07/07/24 Comparisons: PET CT 07/15/24. MRI lumbar spine 10/03/14. Technique: MRI of the thoracic and lumbar spine before and after the uneventful intravenous administration of 15 mL dotarem at the patient's Coaahh-R-Bzzg. T1-weighted, T2-weighted, STIR weighted images were obtained. Findings: MRI thoracic spine: There is normal alignment. There are mild chronic compression deformities in the mid-thoracic spine. There is no evidence of recent fracture. There are multilevel degenerative endplate signal changes and scattered benign intraosseous hemangiomata. There are no worrisome focal osseous lesions. There are multilevel Schmorl's nodes. There is multilevel degenerative disc desiccation and disc height loss with anterior plate osteophyte formation. There is partial osseous fusion across the T4-5 disc space. There are multilevel diffuse disc bulges. There is a small central disc protrusion at T5-6. There is a small central disc extrusion at T6-7 that is slightly migrated superiorly. There is no significant spinal canal stenosis at any thoracic level. Thoracic spinal cord demonstrates normal signal characteristics and positioning. Thoracic neural foramina appear patent. There is a small focus of STIR hyperintense signal and enhancement in the musculature of the left posterior chest wall, as can be seen for example on series 33 image 1, corresponding to hypermetabolism on prior PET CT, in keeping with focal lymphomatous involvement of the muscle. No evidence of spinal mass. Aside from degenerative endplate enhancement, no pathologic spinal enhancement is seen. The prevertebral and perivertebral soft tissues are unremarkable. Small bilateral pleural effusions are partially imaged. MRI lumbar spine: There are 5 lumbar type vertebrae. There is mild dextroconvex lumbar spine curvature. Vertebral body heights are preserved, aside from scattered Schmorl's nodes. There are multilevel degenerative endplate signal changes. There are a few benign intraosseous hemangiomata. No worrisome focal osseous lesions. There is multilevel degenerative disc desiccation and disc height loss, greatest at L3-4 and L5-S1. There are small anterior plate osteophytes. Conus medullaris appears normal, tip terminating normally at the L2 level. Cauda equina nerve roots are normal in course and caliber. There is no worrisome pathologic spinal enhancement after contrast administration. The prevertebral and perivertebral soft tissues are unremarkable. A hypermetabolic focus seen on prior PET CT in the left posterior paraspinal musculature of the lower lumbar spine does not have a clear correlate on the current MRI. Findings by individual disc level are as follows: T12-L1: No disc bulge or herniation. No spinal canal or foraminal stenosis. L1-2: Mild disc bulge. No spinal canal or foraminal stenosis. L2-3: Mild disc bulge. No canal or foraminal stenosis. L3-4: Moderate disc bulge with accompanying endplate osteophyte, eccentric to the left. Facet hypertrophy ligamentous thickening. These factors result in mild left and no right foraminal stenosis. No significant canal stenosis. L4-5: Mild to moderate disc bulge with accompanying endplate osteophyte. Facet hypertrophy and ligamentous thickening. These factors result in mild right and no left foraminal stenosis. No canal stenosis. L5-S1: There are old postoperative changes at this level, likely an old right hemilaminotomy. Moderate disc bulge with accompanying endplate osteophyte, eccentric to the right. There is a superimposed right foraminal disc protrusion. Facet hypertrophy and ligamentous thickening. These factors result in moderate right and minimal if any left foraminal stenosis. No canal stenosis. In comparison with the prior lumbar spine MRI from 2015, findings at L5-S1 appears stable otherwise there has been interval progression of degenerative findings elsewhere in the lumbar spine. Impression: MRI thoracic spine: 1. No evidence of focal lymphomatous involvement of the thoracic spine. 2. Lymphomatous involvement of the musculature of the left posterior chest wall, as seen on prior PET CT. 3. Multilevel degenerative disc disease. No significant spinal canal or foraminal stenosis. MRI lumbar spine: 1. No evidence of focal lymphomatous involvement of the lumbar spine. 2. Small right foraminal disc protrusion at L5-S1 contributes to moderate right foraminal stenosis, similar to prior MRI from 2015. 3. Degenerative disc disease and facet arthropathy elsewhere in the lumbar spine, progressed since the 2015 MRI, now with mild degenerative foraminal stenosis at L3-4 and L4-5. See above for details. 4. Stable postoperative changes at L5-S1. Dictated By: LUIS PLASENCIA M.D. RADIOLOGIST Reviewed and Electronically Signed by: LUIS PLASENCIA M.D. RADIOLOGIST DCRED Signed Date: 09/09/24 15:57 Not Available [facility] 17:03:01 Mri, Pelvis, W/wo Contrast : [address] [address] ---------NAME--------- NUMBER SEX AGE ADMIT DISC. XRAY# F/C TYPE SHARONDA GALLAGHER [id number] F 74 09/09/24 09/09/24 [id number] MB3 O/P DATE OF : 1950 M/R# [id number] #: [id number] LOCATION: TRANSCRIBED: 09/13/24 11:06 MRI PELVIS W/WO [id number] COMPLETED:09/09/24 15:40 [facility] [id number] {REASON FOR PELVIS: R PHYSICIAN: GREGORY MO R A D I O L O G Y R E P O R T EXAM: MRI PELVIS W/WO HISTORY: Recent findings of Lymphoma with mets per patient. Pain in back, pelvis and groin. MRI Chest 07/07/24, MRI Lumbar 10/04/23 COMPARISON:None TECHNIQUE: MRI of the pelvis was performed The exam was performed with and without IV Contrast. 15ml of Dotarem was injected through infusaport without evidence of adverse reaction. FINDINGS: There is a left hip arthroplasty. There is moderate right hip joint osteoarthritis. There is a right hip joint effusion with synovitis. There is severe degenerative disc space narrowing in the visualized lumbar spine. There is right-sided greater trochanteric bursitis. Bone marrow signals without evidence of worrisome marrow replacing lesion. There is no fracture, stress fracture, or avascular necrosis. There is a small amount of free fluid in the pelvis. There is bilateral hamstring origin tendinopathy. IMPRESSION: 1. No worrisome marrow replacing lesion seen in the pelvis 2. Moderate right hip joint osteoarthritis. Right hip joint effusion with synovitis. Dictated By: KARTHIK JUNG M.D. RADIOLOGIST Reviewed and Electronically Signed by: KARTHIK JUNG M.D. RADIOLOGIST DCRED Signed Date: 09/13/24 11:06 Not Available [facility] 09/13/2024 12:10:31 Ct, Head, W/o Contrast : [facility] [address] [place], [place] [address] ---------NAME--------- NUMBER SEX AGE ADMIT DISC. XRAY# F/C TYPE SHARONDA GALLAGHER [id number] F 74 11/25/24 11/25/24 [id number] MB3 O/P DATE OF : 1950 M/R# [id number] #: [id number] LOCATION: TRANSCRIBED: 11/25/24 7:[place] [id number] COMPLETED: [id number] {REASON FOR CT HEAD: R PHYSICIAN: GREGORY MO R A D I O L O G Y R E P O R T EXAMINATION: CT HEAD WO HISTORY: Increasing dizziness, short term memory loss for 3 months. COMPARISON: (None provided.) TECHNIQUE: Axial images through the brain without administration of contrast. Automated exposure control was used for dose optimization on this exam. FINDINGS: No intracranial hemorrhage, mass, or mass effect. Terrazas-white matter differentiation is preserved. No hydrocephalus. There is bifrontal cortical atrophy. Mild diminished attenuation in the periventricular white matter which is nonspecific, but most commonly related to chronic small vessel ischemic change. No abnormal extra-axial fluid collection. Brainstem, cerebellum, and craniocervical junction are unremarkable. There is bilateral maxillary and ethmoid sinus mucosal thickening with right frontal sinus mucosal thickening. Possible air-fluid level within the left maxillary sinus. IMPRESSION: No acute intracranial abnormality. Chronic paranasal sinus disease with possible acute sinusitis left maxillary sinus. Dictated By: JOSELYN IFSHER DO RADIOLOGIST Reviewed and Electronically Signed by: JOSELYN FISHER DO RADIOLOGIST DCRED Signed Date: 11/25/24 07:46 Not Available [facility] 11/25/2024 08:49:46 Problems Name Problem SNOMED Code Status Onset Date Resolution Date Notes Provider Name and Address Organization Details Recorded Time Age-related nuclear cataract of right eye 4478700630822 09 Active 2023 [facility] 4 14:02:22 Steatotic liver disease 925893158 Active 2023 [facility] 4 14:55:27 Rheumatoid arthritis 28064419 Active 2023 [facility] 4 14:56:26 Obstructive sleep apnea syndrome 18574062 Active 2023 [facility] 4 14:56:38 Gastroesoph ageal reflux disease 279155563 Active 2023 [facility] 4 14:56:52 Essential hypertensio n 17985414 Active 2023 [facility] 4 14:58:06 Hypothyroid ism 57437527 Active 2023 [facility] 4 14:58:44 Body mass index 40+ - severely obese 024224013 Active 2023 [facility] 4 14:59:15 Chronic back pain 934810256 Active 2023 [facility] 4 14:59:30 Age-related nuclear cataract of left eye 7549015021204 02 Active 2023 Eugenia keene, [facility] 4 17:17:54 Long-term drug therapy Active 2023 Hermelindo Calvin MD [address] [place] [address], [phone], [facility] 4 12:46:46 Acute cough Active 2023 jM [facility]acho [facility] 4 17:31:28 Near syncope 992967654 Active 2023 Radha Gonzalez null, [facility] 4 15:22:58 Dizziness 524316947 Active 2023 Klever Freeman MD [address] [place] [address], [phone], [facility] 4 15:30:37 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 Procedures Surgical History Date Name Laterality Status Provider Name and Address Organization Details Recorded Time 05/26/20 24 SC Operative Report completed Anshul Santoro MD [address] [place] [address], [phone], [facility] 05/26/2024 10:48:49 05/25/20 24 SC 800 Infusion Record-Rheum completed Amy Max [facility] 05/25/2024 14:55:03 04/06/20 24 SC 800 Infusion Record-Rheum completed Rakel Villar [facility] 04/06/2024 15:02:16 02/17/20 24 SC 800 Infusion Record-Rheum completed Cortez Stovall [facility] 02/17/2024 12:49:28 12/30/19 24 SC 800 Infusion Record-Rheum completed [facility] 12/30/2023 11:54:00 11/11/19 24 SC 800 Infusion Record-Rheum completed [facility] 11/11/2023 13:06:35 Appendectomy completed Not Available Health Note 02/11/2024 09:29:54 delivery completed Not Available Health Note 02/11/2024 09:29:54 Colonoscopy with biopsy completed Not Available Health Note 02/11/2024 09:29:54 Removal of gallbladder completed Not Available Health Note 02/11/2024 09:29:54 Total hysterectomy completed Not Available Health Note 02/11/2024 09:29:54 Total hip arthroplasty completed Not Available Health Note 02/11/2024 09:29:54 Imaging Results None recorded. Procedure Notes None recorded. Medical Equipment None Reported. Allergies Allergen ID Allergen Name Allergen Category Reaction Reaction Severity Criticality Documentation Date Start Date Code Code System Note Provider Name and Address Organization Details Recorded Time 014612 [place] e medicatio n swelling Not available Not available 09/01/20232006 04027 RxNorm React ion: Swell ing; Not Available [facility] 22:29:05 008646 morphine sulfate medicatio n vomiting Not available Not available 09/01/20232006 01334 RxNorm React ion: Vomit ing; Nause a; Not Available [facility] 22:29:09 Medications Name Sig Start Date Stop Date Status Note LastModified by Organization Details LastModified Time fluoxetine 40 mg capsule TAKE 1 CAPSULE BY MOUTH DAILY active Not Available Not Available No t Available levothyroxi ne 175 mcg tablet TAKE 1 TABLET BY MOUTH DAILY 11/11 completed Not Available Not Available Not Available gabapentin 600 mg tablet TAKE 1 TABLET BY MOUTH THREE TIMES DAILY IN ADDITION TO A 400 MG TABLET FOR A TOTAL DOSE OF 1000 MG 3 TIMES A DAY active Not Available Not Available No t Available azithromyci n 250 mg tablet TAKE 2 TABLETS BY MOUTH FOR 1 DAY THEN TAKE 1 TABLET BY MOUTH EVERY DAY FOR 4 DAYS 01/23 completed Not Available Not Available Not Available ofloxacin 0.3 % eye drops INSTILL 1 DROP IN RIGHT EYE FOUR TIMES DAILY 07/26 completed Not Available Not Available Not Available benzonatate 200 mg capsule TAKE 1 CAPSULE BY MOUTH THREE TIMES DAILY NEEDED 11/11 completed Not Available Not Available Not Available hydrocodone 5 mg-acetamin ophen 325 mg tablet TAKE 1 TABLET BY MOUTH EVERY 8 HOURS NEEDED active Not Available Not Available No t Available sucralfate 1 gram tablet DISSOLVE 1 TABLET IN 3 OZ OF WATER AND MAKE INTO A SLURRY AND DRINK THREE TIMES DAILY 11/11 completed Not Available Not Available Not Available lisinopril 20 mg tablet TAKE 1 TABLET BY MOUTH TWICE DAILY active Not Available Not Available No t Available prednisone 20 mg tablet TAKE 2 TABLETS BY MOUTH DAILY FOR 1 WEEK THEN TAKE 1 TABLET BY MOUTH DAILY FOR 1 WEEK THEN STOP active Not Available Not Available No t Available gabapentin 400 mg capsule TAKE 1 CAPSULE BY MOUTH THREE TIMES DAILY. TOTAL DAILY DOSE OF 1000 MG 3 TIMES A DAY active Not Available Not Available No t Available prochlorper azine maleate 10 mg tablet TAKE 1 TABLET BY MOUTH EVERY 8 HOURS NEEDED FOR NAUSEA OR VOMITING. MAY ALTERNATE WITH ZOFRAN active Not Available Not Available No t Available folic acid 400 mcg tablet Take 2 tablets every day by oral route. active Not Available Not Available No t Available aspirin 81 mg tablet,tho yed release Take 1 tablet every day by oral route. active Not Available Not Available No t Available ondansetron 8 mg disintegrat ing tablet DISSOLVE 1 TABLET ON THE TONGUE EVERY 8 HOURS NEEDED active Not Available Not Available No t Available lidocaine-p rilocaine 2.5 %-2.5 % topical cream APPLY A DIMESIZE AMOUNT OVER PORT AND COVER WITH SARAN WRAP 30-60 MINUTES BEFORE HAVING PORT ACCESSED active Not Available Not Available No t Available ketorolac 0.5 % eye drops INSTILL 1 DROP IN RIGHT EYE FOUR TIMES DAILY 07/26 completed Not Available Not Available Not Available prednisolon e acetate 1 % eye drops,suspe nsion SHAKE LIQUID AND INSTILL 1 DROP IN RIGHT EYE FOUR TIMES DAILY 07/26 completed Not Available Not Available Not Available clindamycin 1 % topical gel APPLY AND GENTLY MASSAGE TOPICALLY TO THE AFFECTED AREA THREE TIMES DAILY 01/23 completed Not Available Not Available Not Available methotrexat e sodium 2.5 mg tablet TAKE 4 TABLETS BY MOUTH EVERY FRIDAY active Not Available Not Available No t Available ropinirole 0.25 mg tablet TAKE 1 TABLET BY MOUTH AT BEDTIME active Not Available Not Available No t Available doxycycline monohydrate 100 mg capsule TAKE 1 CAPSULE BY MOUTH EVERY 12 HOURS 11/11 completed Not Available Not Available Not Available levothyroxi ne 150 mcg tablet TAKE 1 TABLET BY MOUTH DAILY active Not Available Not Available No t Available omeprazole 20 mg capsule,del ayed release TAKE 1 CAPSULE BY MOUTH TWICE DAILY active Not Available Not Available No t Available montelukast 10 mg tablet TAKE 1 TABLET BY MOUTH DAILY DIRECTED 11/11 completed Not Available Not Available Not Available allopurinol 300 mg tablet TAKE 1 TABLET BY MOUTH DAILY DIRECTED 01/26 completed Not Available Not Available Not Available fentanyl 25 mcg/hr transdermal patch APPLY 1 PATCH TOPICALLY TO THE SKIN EVERY 3 DAYS 01/26 completed Not Available Not Available Not Available albuterol sulfate HFA 90 mcg/actuati on aerosol inhaler INHALE 1 TO 2 PUFFS BY MOUTH EVERY 4 TO 6 HOURS NEEDED active Not Available Not Available No t Available propranolol 20 mg tablet TAKE 1 TABLET BY MOUTH TWICE DAILY active Not Available Not Available No t Available cefdinir 300 mg capsule TAKE 1 CAPSULE BY MOUTH EVERY 12 HOURS FOR 7 DAYS 11/11 completed Not Available Not Available Not Available metformin ER 500 mg tablet,exte nded release 24 hr TAKE 1 TABLET BY MOUTH EVERY DAY IN THE EVENING 11/11 completed Not Available Not Available Not Available loratadine 10 mg tablet Take 1 tablet every day by oral route. active Not Available Not Available No t Available naproxen 500 mg tablet TAKE 1 TABLET BY MOUTH EVERY 12 HOURS NEEDED 11/11 completed Not Available Not Available Not Available atovaquone 750 mg/5 mL oral suspension SHAKE LIQUID AND TAKE 5 ML BY MOUTH TWICE DAILY 01/26 completed Not Available Not Available Not Available magnesium 200 mg tablet Take by oral route. active Not Available Not Available No t Available Vitamin D3 25 mcg (1,000 unit) capsule Take 1 capsule every day by oral route. active Not Available Not Available No t Available topiramate 50 mg tablet TAKE 1 AND 1/2 TABLETS BY MOUTH DAILY AT BEDTIME 11/11 completed Not Available Not Available Not Available nitrofurant oin monohydrate /macrocryst als 100 mg capsule TAKE 1 CAPSULE BY MOUTH TWICE DAILY UNTIL GONE 02/10 completed Not Available Not Available Not Available biotin active Not Available Not Availa ble Not Available Tums active Not Available Not Availa ble Not Available Vitamin B12 active Not Available Not A vailable Not Available Probiotic active Not Available Not Shahla ilable Not Available Simponi ARIA 12.5 mg/mL intravenous solution INFUSE 200 mg OVER 30 MINUTE(S) BY INTRAVENO US ROUTE EVERY 7 WEEKS 07/26 completed Not Available Not Available Not Available potassium chloride ER 20 mEq tablet,exte nded release TAKE 2 TABLETS BY MOUTH DAILY active Not Available Not Available No t Available Paxlovid 150 mg-100 mg tablets in a dose pack (Moderate Renal Dose) TAKE 2 TABLETS BY MOUTH TWICE DAILY UNTIL ALL TAKEN 01/26 completed Not Available Not Available Not Available Vitals Date Recorded Body height Body mass index (BMI) Body weight Heart rate Respiratory rate Oxygen saturation Oxygen saturation in Arterial blood by Pulse oximetry Systolic blood pressure Diastolic blood pressure Provider Name and Address Organization Details Last Updated DateTime 5 162.56 cm 41.7 kg/m2 721766. 95 g 76 /min 16 /min 96 % 96 % 136 mm[Hg] 82 mm[Hg] [facility] 5 12:16:46 Date Recorded Body height Body mass index (BMI) Body weight Heart rate Respiratory rate Oxygen saturation Oxygen saturation in Arterial blood by Pulse oximetry Systolic blood pressure Diastolic blood pressure Provider Name and Address Organization Details Last Updated DateTime 5 162.56 cm 42.1 kg/m2 944077. 13 g 80 /min 16 /min 96 % 96 % 126 mm[Hg] 80 mm[Hg] [facility] 5 12:53:32 Date Recorded Body height Body mass index (BMI) Body weight Heart rate Oxygen saturation Oxygen saturation in Arterial blood by Pulse oximetry Systolic blood pressure Diastolic blood pressure Provider Name and Address Organization Details Last Updated DateTime 4 162.56 cm 41.5 kg/m2 907763. 35 g 68 /min 100 % 100 % 136 mm[Hg] 80 mm[Hg] [facility] 4 15:59:56 Date Recorded Body height Heart rate Oxygen saturation Oxygen saturation in Arterial blood by Pulse oximetry Body mass index (BMI) Body weight Systolic blood pressure Diastolic blood pressure Provider Name and Address Organization Details Last Updated DateTime 162.56 cm 66 /min 98 % 98 % 41.2 kg/m2 152156. 17 g 134 mm[Hg] 78 mm[Hg] Radha Gonzalez [facility] 15:16:31 Social History Question Answer Notes LastModified by Klinq ion Details LastModified Time Tobacco Smoking Status Former Smoker Gloria Dc yecenia, [facility] 06/17/2024 16:00:15 Do You Have An Advance Directive? Yes [email or web address] Information not available 03/07/2024 What Is Your Level Of Caffeine Consumption? Moderate [email or web address] Information not available 03/07/2024 What Is Your Code Status? Full Code [email or web address] Information not available 03/07/2024 How Many Times Per Week Do You Exercise? 1-2 Times Per Week [email or web address] Information not available 03/07/2024 How Many Packs Per Day (PPD)? 1 Information not available 06/17/2024 How Long Have You Smoked? 50 Years [email or web address] Information not available 06/17/2024 When Did You Quit Smoking? 2020 [email or web address] Information not available 06/17/2024 Do You Have A Medical Power Of Banking Management Consulting Manager? Yes [email or web address] Information not available 03/07/2024 What Was The Date Of Your Most Recent Tobacco Screening? 03/09/2024 [email or web address] Information not available 03/07/2024 What Is Your Relationship Status? [email or web address] Information not available 03/07/2024 Sex: Unknown Functional Status Question Answer Note LastModified by Klinq ion Details LastModified Time How many times per week do you consume alcohol? 3-4 times per week [email or web address] Information not available 03/07/2024 Do you use any illicit or recreational drugs? No [email or web address] Information not available 03/07/2024 What is your level of alcohol consumption? Moderate [email or web address] Information not available 03/07/2024 Are you currently employed? 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 Occasional [email or web address] Information not available 03/07/2024 Mental Status None recorded. Family History Relationship Description Onset Age of this Age Resolved Age Notes LastModified by Organization Details LastModified Time Mother Family history of malignant neoplasm [email or web address] Not available 2023 09:29:53 Mother Hypertensive disorder [email or web address] Not available 2023 09:29:53 Brother Family history of malignant neoplasm [email or web address] Not available 2023 09:29:53 Brother Hypertensive disorder [email or web address] Not available 2023 09:29:53 Brother Cerebrovascu lar accident [email or web address] Not available 05/2024 09:29:53 Brother Disorder of thyroid gland [email or web address] Not available 2023 09:29:53 Maternal Grandmother Family history of malignant neoplasm [email or web address] Not available 2023 10:25:34 Son Hypertensive disorder [email or web address] Not available 2023 10:25:34 Daughter Hypertensive disorder [email or web address] Not available 2023 10:25:34 Medical History Condition Response Diabetes N Anxiety Disorder N Bleeding Disorder N Attention-deficit Hyperactivity Disorder N High Blood Pressure Y Arthritis Y Hyperlipidemia N Cancer N Thyroid Problems Y Stroke N Asthma N COPD Y Depression Y Anemia N Seizures N Heart Disease N Fibromyalgia N Osteoporosis N Kidney Disease N Gynecological HistoryNo gynecological history recorded. Obstetrics History GPAL:G 0 P 0 0 0 0 Immunizations Vaccine Type Date Status Note Provider Nam e and Address Organization Details Recorded Time zoster recombinant 9 completed [facility]11[facility]2024 12:04:50 zoster recombinant 8 completed [facility]ix [facility] 02/11/2024 12:04:50 Influenza, high-dose, quadrivalent, PF 0 completed [facility] 02/11/2024 12:04:50 Influenza, high-dose, quadrivalent, PF 3 completed [facility] 02/11/2024 12:04:50 Influenza, high-dose, quadrivalent, PF 1 completed Ca keene, [facility] 02/11/2024 12:04:50 Influenza, adjuvanted, quadrivalent, PF 2 completed [facility] 02/11/2024 12:04:50 COVID-19, mRNA, LNP-S, PF, 30 mcg/0.3 mL dose 1 completed Ca Boyd [facility] 02/11/2024 12:04:50 COVID-19, mRNA, LNP-S, PF, 30 mcg/0.3 mL dose 1 completed Ca Boyd [facility] 02/11/2024 12:04:51 COVID-19, mRNA, LNP-S, PF, 30 mcg/0.3 mL dose 1 completed [facility] 02/11/2024 12:04:51 COVID-19, mRNA, LNP-S, PF, 30 mcg/0.3 mL dose, florecita-sucrose 2 completed [facility] 02/11/2024 12:04:51 COVID-19, mRNA, LNP-S, bivalent, PF, 30 mcg/0.3 mL dose 2 completed Ca Nix [facility] 02/11/2024 12:04:51 RSV, recombinant, protein subunit RSVpreF, adjuvant reconstituted, 0.5 mL, PF 3 completed Ca Boyd [facility], [facility] 02/11/2024 12:04:51 COVID-19, mRNA, LNP-S, PF, 50 mcg/0.5 mL 3 completed [facility] 02/11/2024 12:04:51 Tdap 6 completed [facility] 02/11/2024 12:04:51 Pneumococcal conjugate PCV 13 1 completed [facility] 02/11/2024 12:04:51 Influenza, high-dose, trivalent, PF 8 completed Cahiram Nix null, [facility] 02/11/2024 12:04:51 Influenza, high-dose, trivalent, PF 9 completed Ca Nix null, [facility] 02/11/2024 12:04:51 Influenza, split virus, trivalent, preservative 7 completed Ca Boyd null, [facility] 02/11/2024 12:04:51 Influenza, split virus, quadrivalent, PF 5 completed Ca Nix null, [facility] 02/11/2024 12:04:51 Influenza, split virus, quadrivalent, PF 7 completed Ca Nix null, [facility] 02/11/2024 12:04:51 Past Encounters Encounter ID Performer Location Encounter Start Date Encounter Closed Date Diagnosis/Indication Diagnosis SNOMED-CT Code Diagnosis ICD10 Code Diagnosis Note [id number] Hermelindo Calvin MD [facility] ([place]) [address] [place] [phone] 11/11/2023 12:15:58 11/12/2023 14:08:43 Rheumatoid arthritis 85000241 M06.9 [id number] Hermelindo Calvin MD [facility] [address] [place] [phone] 11/12/2023 12:22:11 11/12/2023 12:57:53 Rheumatoid arthritis 03866748 M06.9 Chronic back pain 975625 002 M54.59 Long-term drug therapy [id number] Z79.389 [id number] Hermelindo Calvin MD [facility] ([place]) [address] [phone] 12/30/2023 11:38:22 12/31/2023 10:06:27 Rheumatoid arthritis 64749685 M06.9 [id number] Hermelindo Robledo PA-C [facility] [address] [place] [address] 02/11/2024 11:55:02 02/12/2024 06:23:20 Hypothyroidism [id number] E03.9 She is overall doing well. Over the last several years we have been titrating down her Levothyrox ine, possibly in part due to efforts on her end towards weight reduction. She is now on Levothyrox ine 150 mcg QD.2023 TSH was at target at 2.386 She notes she has some insomnia baseline/h as not changed with our changes to thyroid medication s.She also notes some fatigue/co ld intoleranc e also has not changed/is her baseline. Adrenal adenoma [id number] D35.00 Bilateral adrenal masses. These have been stable on CT imaging over a 24 month window and appear nonfunctio nal based on labs as in HPI. No dedicated imaging is necessary at this time but attention could be called to the adrenal glands if future imaging performed. She had CT scan done in October 2023 for abdominal pain.This incidental ly showed adrenal glands, these were described as normal.James l see if we cannot get rereviewed /addendum with attn to adrenal glands. She will return in one year for reevaluati on. [id number] Hermelindo Calvin MD [facility] ([place]) [address] [address] 02/17/2024 11:51:41 02/17/2024 12:56:09 Rheumatoid arthritis [id number] M06.9 [id number] Hermelindo Calvin MD [facility] ([place]) [address] [place] [address] 03/17/2024 11:13:36 03/17/2024 12:04:24 Long-term drug therapy [id number] Z79.899 Rheumatoid arthritis 698 56425 M06.9 [id number] Hermelindo Calvin MD [facility] ([place]) [address] [address] 04/06/2024 14:40:34 04/06/2024 16:17:03 Rheumatoid arthritis [id number] M06.9 [id number] Angel Christianson MD [facility] ([place]) [address] [place] [address] 05/26/2024 06:22:55 06/07/2024 11:31:52 [id number] Hermelindo Calvin MD [facility] ([place]) [address] Floor [facility] [place] [address] 05/25/2024 14:19:04 05/25/2024 14:56:01 Rheumatoid arthritis [id number] M06.9 [id number] Anshul Santoro MD [facility] ([place]) [address] [place] [address], 2nd [facility] [place] [address] 05/26/2024 06:22:57 05/28/2024 16:21:38 [id number] Morro Sweet MD [facility] ([place]) [address] [place] [address] 06/17/2024 15:34:02 06/18/2024 08:50:37 Infection caused by Bordetella [id number] A37.90 Obstructiv e sleep apnea syndrome [id number] G47.33 [id number] Morro Sweet MD [facility] ([place]) [address] [place] [address] 06/17/2024 15:34:02 06/18/2024 11:25:44 Acute cough [id number] R05.1 [id number] Klever Freeman MD [facility] ([place]) [address] [place] [address],[address] Floor [facility] [place] [address] 07/26/2024 15:03:35 07/26/2024 16:43:26 Dizziness [id number] R42 [id number] Hermelindo Calvin MD [facility] ([place]) [address] Floor [facility] [place] [address] 09/10/2024 12:08:38 09/11/2024 05:35:26 Rheumatoid arthritis [id number] M06.9 Long-term drug therapy [id number] Z79.899 [id number] Hermelindo Calvin MD [facility] ([place]) [address] [place] [address] 01/26/2025 12:38:16 01/27/2025 07:00:56 Chronic back pain [id number] M54.59 - discussed with the patient. Recommenda tions provided for continued physical activity and management . Rheumatoid arthritis 698 12781 M06.9 - Stable, excellent control a result of her Rituxan and methotrexa te.- RTC in 6 months, sooner as needed. Taking hig h risk medication [id number] 75824 Z79.899 Marginal z one lymphoma [id number] C85.80 Stage 4 - currently in remission Health Concerns Section Related Observation LastModified by Organization Detai ls LastModified Time None Recorded Concern Status LastModified by Organization Details LastModified Time None Recorded Advance Directives Directive Y: Payers Insurance Date Sequence Insurance Name Policy Number Policy Guadarrama Covered Member ID Guadarrama Member ID Guarantor Name 07/14/2024 2 [employer] (MEDICARE SUPPLEMENT) Aileen Paniagua [id number] Aileen A 09/09/2024 [place] - [facility] (MEDICARE) Aileen A [id number] Aileen A 06/15/2024 [place] Aileen A [id number] Aileen A 09/27/2024 [place] A[place]en A [id number] Aileen A 01/27/2025 [place] [facility] (MEDICARE) Aileen A [id number] Aileen A Rajput 01/21/2025 1 [place] Aileen A [id number] Aileen A Notes Date Note Type Note Provider Name and Address Organization Details Recorded Time 09/10/2024 text/html A 74-year-old ite female returns at this time for follow-up of her rheumatoid arthritis. She was found in the fall of 2023 to have a mass within her right pectoralis muscle. This was found when she had a CT with contrast to rule out a PE at [facility]. She was eventually found to have non-Hodgkin s lymphoma, which apparently is involving much of the musculature, predominantly on the right side, involving soleus muscle, right pectoralis muscle, also apparently some involvement of other areas. She is currently under the care of [facility] Oncology and has started rituximab treatment. She will receive 4 infusions weekly x4 and she is to get her second fusion Friday of next week. Currently, the patient s arthritis is doing relatively well. She has been on prednisone as well as Rituxan initiation therapy, which has quieted down her arthritis significantly. She does remain in methotrexate 10 mg once weekly. The patient recently had problems with shortness of breath, which she states is improved today. She as quite short of breath the last 3 days, wondering what might be causing this. She does have a small pleural effusion on the right, as noted on plain radiograph of the abdomen from a few days ago, but it was minimal. In addition, she did have an MRI of her cervical, thoracic, and lumbar spine just yesterday, the results of which are benign. I did review these with her today. Hermelindo Calvin MD [address] [place] [address], [phone], [facility] 09/10/2024 13:09:50 01/26/2025 text/html 74-year-old female returns today in follow-up for her rheumatoid arthritis. She is status post therapy for her lymphoma. Her treatment was received through [facility] oncology and she has done exceptionally well. She had 4 infusions of the Rituxan. She notes that her arthritis is still significant. When she describes this however she focuses mostly on her chronic pain in the back region. She has minimal discomfort or swelling within the small joints of her hands wrists ankles or feet. She has had no significant swelling within her knees. They do hurt when she walks for any prolonged distance but typically it is her back to cause her discomfort initially. She has had no side effects or methotrexate. She is on a lower dose than she had been on in the past and I anticipate and believe that much of the swelling in her small joints has been controlled by her Rituxan infusions. Hermelindo Calvin MD [address] [place] [address], [phone], [facility] 01/26/2025 13:08:50 OBGyn Episode No OBEpisode recorded.
--- NOTE | 2025-02-01 11:25 | PC.NURSE ---
scada technician Boyd alerted this RN that after CT scan, pt. became dizzy, nauseous and incontinent of urine. Pt. brought from CT into triage room for reassessment. VS obtained. Pt. hypertensive, states she did take her blood pressure medication today. Reports HX of vertigo and states this feels the same, the room is spinning around her. Speech clear. Pt. able to move all extremities and ambulate. Pt. also reports having stress incontinence. Pt. brought back to a room. Soiled pants removed. Pt. lying on a stretcher and placed on monitor. [place] delivered. 2x family member brought to bedside. Bedside report provided to primary RN Radha.
[2025-02-01 11:31] VITALS: BP 183/97; PULSE 75; RESP 18; O2SAT 98
[2025-02-01 11:40] VITALS: BP 154/87; PULSE 73; RESP 19; O2SAT 97
--- NOTE | 2025-02-01 12:18 | ED_ITS ---
HPI - Fall General Chief Complaint: Fall Stated Complaint: glf, -LOC, +dizziness Time Seen by Provider: 02/01/25 12:02 History of Present Illness HPI Narrative: 74-year-old female presenting to the emergency department after a ground level mechanical fall with head trauma. Patient states that she tripped over her dog and fell backwards onto concrete and hit the left side of her head. Endorses using a baby aspirin but no other anticoagulants or blood thinners. No loss of consciousness and she was able to get up with some minimal assistance. Complaining of nauseousness and a headache but denies any fever, chills, vision changes, difficulty ambulating, weakness or sensory changes. Was otherwise in her normal state of health and states the fall was purely mechanical in nature without any prodromal symptoms. Related Data Home Medications ?Medication ?Instructions ?Recorded ?Confirmed ?Last Taken ?Type albuterol sulfate 90 mcg/actuation inhalation 10/19/23 Unknown History aerosol inhaler aspirin 81 mg chewable tablet 81 mg PO DAILY 10/19/23 10/19/23 Unknown History fluoxetine 40 mg capsule mg 10/19/23 Unknown History folic acid 400 mcg tablet 0.4 mg PO DAILY 10/19/23 10/19/23 Unknown History gabapentin 400 mg capsule mg 10/19/23 Unknown History gabapentin 600 mg tablet mg 10/19/23 Unknown History golimumab 12.5 mg/mL intravenous 200 mg IV ONCE 10/19/23 10/19/23 Unknown History solution (Simponi ARIA) levothyroxine 150 mcg tablet mcg 10/19/23 Unknown History lisinopril 20 mg tablet mg 10/19/23 Unknown History loratadine 10 mg tablet (Claritin) 10 mg PO DAILY 10/19/23 10/19/23 Unknown History methotrexate sodium 2.5 mg tablet mg 10/19/23 Unknown History omeprazole 20 mg capsule,delayed mg 10/19/23 Unknown History release propranolol 20 mg tablet mg 10/19/23 Unknown History Allergies Allergy/AdvReac Type Severity Reaction Status Date / Time morphine Allergy Headache Verified 10/19/23 08:52 nabumetone (From Relafen) Allergy Rash Verified 10/19/23 08:52 Review of Systems Review of Systems: As reviewed above in HPI Exam Narrative: GENERAL: [Well-appearing, well-nourished, and in no acute distress.] HEAD: Left parietal scalp hematoma with no active bleeding. No midline tenderness the neck EYES: [PERRLA and EOMI.] ENT: Nares clear, no rhinorrhea or epistaxis. Mucous membranes moist. NECK: Supple. No midline tenderness CHEST: [Clear to auscultation. No respiratory distress.] HEART: [Regular rate and rhythm]. No murmur heard. [Normal peripheral pulses.] ABDOMEN: [Soft, nondistended], [nontender], [No rigidity or guarding] EXTREMITIES: Normal range of motion. [No edema.] SKIN: Warm, dry, no rash. NEURO: [No focal deficits]. Alert and oriented [x3.] PSYCH: [Normal mood and affect.] Course Vital Signs Vital signs: Vital Signs Pulse Rate 75 02/01/25 11:31 Respiratory Rate 18 02/01/25 11:31 Blood Pressure 183/97 H 02/01/25 11:31 Pulse Oximetry 98 02/01/25 11:31 Pulse Rate 73 02/01/25 11:40 Respiratory Rate 19 02/01/25 11:40 Blood Pressure 154/87 H 02/01/25 11:40 Pulse Oximetry 97 02/01/25 11:40 MDM - Fall MDM Narrative Medical decision making narrative: 74-year-old female presenting to the emergency department after a ground level mechanical fall with head trauma. Patient states that she tripped over her dog and fell backwards onto concrete and hit the left side of her head. Endorses using a baby aspirin but no other anticoagulants or blood thinners. No loss of consciousness and she was able to get up with some minimal assistance. Complaining of nauseousness and a headache but denies any fever, chills, vision changes, difficulty ambulating, weakness or sensory changes. Was otherwise in her normal state of health and states the fall was purely mechanical in nature without any prodromal symptoms. Patient otherwise appears well not any acute distress but does have a left-sided parietal scalp hematoma given her age and risk factors as well as the mechanism a CT of the head and CT of the cervical spine were ordered to rule out intracranial pathology or cervical injury. She was given Tylenol and Zofran for nauseousness and then we also added on ibuprofen after non con CT shows no intracranial pathology. CT of the cervical spine is negative for any acute abnormality and she is hemodynamically stable with normal neuro vasculature and unremarkable workup with symptoms being controlled patient and family felt going home was appropriate. Will be prescribed Zofran meclizine and encouraged to take Tylenol and ibuprofen as well as refrain from any physical activities are repeat head injuries. She was given concussion instructions and return precautions and safely discharged. Patient was ambulatory here in the emergency department after medications and felt improved. We will send her home with some symptom controlling medications and safely discharged home at this time. Medical Records Attestation: I reviewed the patient's medical records. Imaging Data Attestation: I personally reviewed and interpreted this imaging study as follows: My impression: Impressions Head CT 02/01/25 11:44 IMPRESSION: 1. Left parietal scalp hematoma. No fracture or acute intracranial process. 2. Age-related changes including mild diffuse volume loss and mild scattered white matter hypoattenuation consistent with chronic small vessel ischemic disease. Cervical Spine CT 02/01/25 14:17 IMPRESSION: 1. Moderate cervical spondylosis. No acute osseous abnormality. Impressions Head CT 02/01/25 11:44 IMPRESSION: 1. Left parietal scalp hematoma. No fracture or acute intracranial process. 2. Age-related changes including mild diffuse volume loss and mild scattered white matter hypoattenuation consistent with chronic small vessel ischemic disease. Discharge Plan Discharge Clinical Impression: CHI (closed head injury), Hematoma of left parietal scalp, Concussion Patient Disposition: Home Condition: Stable Instructions: Antibiotic Form, Concussion (ED), Contusion in Adults (ED) Additional Instructions: We will send you home with some Zofran and meclizine for symptom control of your concussion. Take Tylenol and ibuprofen for aches and pains. Refrain from any exertion or strenuous activity for the next several days to weeks as concussion symptoms can last weeks at a time. Return with any worsening symptoms, intractable nausea, mental status changes or any other concerns. Patient Language: Slovak Prescriptions: New meclizine 25 mg tablet 25 mg PO TID PRN (Reason: dizziness) 10 Days Qty: 30 0RF ondansetron 4 mg tablet,disintegrating 4 mg PO Q8H PRN (Reason: nausea and vomiting) Qty: 10 0RF No Action fluoxetine 40 mg capsule gabapentin 600 mg tablet lisinopril 20 mg tablet gabapentin 400 mg capsule folic acid 400 mcg Tablet 0.4 mg PO DAILY methotrexate sodium 2.5 mg tablet levothyroxine 150 mcg tablet omeprazole 20 mg capsule,delayed release(DR/EC) aspirin 81 mg Tablet,Chewable 81 mg PO DAILY albuterol sulfate 90 mcg/actuation HFA aerosol inhaler INHALATION propranolol 20 mg tablet loratadine [Claritin] 10 mg Tablet 10 mg PO DAILY Simponi ARIA 12.5 mg/mL Solution 200 mg IV ONCE Rx Instructions: administer over 30 mins cefdinir 300 mg capsule 300 mg PO Q12H 7 Days Qty: 14 0RF Follow-up/Referrals: PHYSICIAN NOT ON STAFF,NONSTAFF [Non-Staff] - Time of Disposition: 14:29
[2025-02-01] MEDS: ONDANSETRON HCL ODT 4 MG TABLET PO (12:24)
[2025-02-01] MEDS: IBUPROFEN 400 MG TABLET 800 MG PO (12:24)
[2025-02-01] MEDS: ACETAMINOPHEN 500 MG TABLET 1000 MG PO (12:24)
[2025-02-01] MEDS: MECLIZINE HCL 25 MG TABLET PO (12:29)
== END 2025-02-01 14:47 | disposition home or self-care (01) ==
PROVIDERS: Emergency Provider Student in an Organized Health Care Education/Training Program
DX: S00.03XA Contusion of scalp, initial encounter (principal); S06.0X0A Concussion without loss of consciousness, initial encounter; Z79.899 Other long term (current) drug therapy; Z79.82 Long term (current) use of aspirin; M47.812 Spondylosis without myelopathy or radiculopathy, cervical region; W01.0XXA Fall on same level from slipping, tripping and stumbling without subsequent striking against object, initial encounter
CPT/HCPCS: 70450; 72125; 99284; A9270